=== PATIENT | male | born 1980 | race Caucasian/White ===

== ENCOUNTER 2016-11-14 09:43 | Inpatient (IN) | payer OTHER ==
[2016-11-13 22:09] VITALS: BP 149/92
[2016-11-14] VITALS (10 sets, daily range): BP systolic 131–153; BP diastolic 66–94
[~2016-11-14] VITALS: Ht 170.2 cm; Wt 108.9 kg
[2016-11-14] MEDS ORDERED: IV NORMAL SALINE 1000ML BAG 1,000 ML IV SCH ×2 (09:56→10:40)
[2016-11-14] MEDS ORDERED: ONDANSETRON PF 4 MG/2 ML VIAL. ONE ×2 (10:01→16:53)
[2016-11-14] MEDS ORDERED: HYDROMORPHONE 2 MG/ML VIAL. ONE (10:01)
[2016-11-14 10:05] LABS: BASO # 0.1 x10^3/uL (0.0-0.2); BASO % 1 % (0-3); EOS % 1 % (0-3); HEMATOCRIT 45.7 % (39.0-53.0); HEMOGLOBIN 15.3 g/dL (13.0-17.5); LYMPH % 34 % (24-48); MEAN CORPUSCULAR HEMOGLOBIN 28 pg (25-35); MEAN CORPUSCULAR HGB CONC 34 g/dL (31-37); MEAN CORPUSCULAR VOLUME 83 fL (79-100); MONO % 6 % (0-9); NEUT % 58 % (31-73); PLATELET COUNT 413 x10^3/uL (140-400); RED BLOOD COUNT 5.49 x10^6/uL (4.30-5.70); RED CELL DISTRIBUTION WIDTH 14.2 % (11.5-14.5); WHITE BLOOD COUNT 14.5 x10^3/uL (4.0-11.0)
[2016-11-14] MEDS: HYDROMORPHONE 2 MG/ML VIAL. IV/SQ PRN ×3 (10:06→11:11)
--- NOTE | 2016-11-14 10:14 | RAD ---
Left wrist radiographs History: Fall, left wrist deformity. Comparison: None. Findings: PA, lateral, and oblique views of the left wrist. There is a comminuted distal radial fracture with approximately one shaft width dorsal displacement of the major distal fragment relative to the major proximal fragment. It is uncertain if the fracture extends the radiocarpal articular surface. The distal radial fracture involves the distal radioulnar joint. There is also a nondisplaced, mildly comminuted fracture of the distal ulna. There is an atypical appearance of the lunate which has a somewhat pie piece shaped appearance on the frontal view, which can be seen with lunate or perilunate dislocation, although this is not confirmed on the lateral view. Post reduction films may be helpful, as this may be a secondary to abnormal positioning given the displaced distal radial fracture. Impression: 1. Acute, displaced, comminuted distal radial fracture-dislocation 2. Acute, nondisplaced, distal ulnar fracture. 3. Atypical appearance of the lunate as described above.
[2016-11-14 10:18] LABS: CALCIUM 9.6 mg/dL (8.5-10.1); CREATININE 1.3 mg/dL (0.7-1.3); GFR 62.5; POTASSIUM 4.5 mmol/L (3.5-5.1)
--- NOTE | 2016-11-14 10:19 | RAD ---
Left elbow radiographs History: Pain, fall. Comparison: None. Findings: 2 nonstandard views of the left elbow were obtained. Examination is consequently limited as well as limited secondary to lack of third view. There is evidence of acute fracture involving the proximal ulna. There is evidence of small osseous fragments at the trochlear notch. There is also suspected to be subluxation versus dislocation of the proximal radius and normal relative to the humerus. There is associated soft tissue swelling. Impression: Limited examination. Evidence of fracture fragments, probably arising from the proximal ulna. There is also suspicion for elbow subluxation versus dislocation.
[2016-11-14] MEDS ORDERED: ONDANSETRON PF 4 MG/2 ML VIAL. IV ONE (10:30)
--- NOTE | 2016-11-14 10:37 | PHYS DOC ---
Past Medical History Past Medical History: No Pertinent History Past Surgical History: Other Additional Past Surgical Histo: eye surgery Alcohol Use: None Drug Use: None Adult General Chief Complaint Chief Complaint: UPPER EXTREMITY PAIN HPI HPI Patient is a 36 year old male who presents with complaint of left upper extremity injury. Patient states that prior to arrival he accidentally fell off of a ladder approximately 3 feet from the ground. Patient states that he tried to catch himself with his left hand. Patient states that he is having severe pain to his left upper extremity at both his wrist and elbow. The patient denies any other injuries and denies loss of consciousness. Patient rates his pain currently is 10 out of 10. Patient was noted to have an obvious deformity to the left wrist at triage. Patient denies any significant past medical history and is not on any medications currently. Patient states that he does have feeling in all 5 digits of the left hand at this time. Review of Systems Review of Systems Constitutional: Denies fever or chills [] Eyes: Denies change in visual acuity, redness, or eye pain [] HENT: Denies nasal congestion or sore throat [] Respiratory: Denies cough or shortness of breath [] Cardiovascular: Denies chest pain or edema [] GI: Denies abdominal pain, nausea, vomiting, bloody stools or diarrhea [] : Denies dysuria or hematuria [] Musculoskeletal: Left wrist pain, left elbow pain [] Integument: Denies rash or skin lesions [] Neurologic: Denies headache, focal weakness or sensory changes [] Current Medications Current Medications Current Medications Medications (Trade) Dose Ordered Sig/Mile Start Time Stop Time Status Last Admin Dose Admin Hydromorphone HCl (Dilaudid) 2 mg STK-MED ONCE 11/14/16 10:01 11/14/16 10:02 DC Ondansetron HCl (Zofran) 4 mg STK-MED ONCE 11/14/16 10:01 11/14/16 10:02 DC Sodium Chloride (Iv Sodium Chloride 0.9% 1000ml Bag) 1,000 ml @ 1,000 mls/hr Q1H 11/14/16 09:56 11/14/16 10:55 11/14/16 10:06 1,000 MLS/HR Allergies Allergies Allergies Coded Allergies Type Severity Reaction Last Updated Verified No Known Drug Allergies 11/14/16 No Physical Exam Physical Exam Constitutional: Alert, afebrile, appears in severe discomfort. [] HENT: Normocephalic, atraumatic, bilateral external ears normal, oropharynx moist, no oral exudates, nose normal. [] Eyes: PERRLA, EOMI, conjunctiva normal, no discharge. [] Neck: Normal range of motion, no tenderness, supple, no stridor. [] Cardiovascular:Heart rate regular rhythm, no murmur [] Lungs & Thorax: Bilateral breath sounds clear to auscultation [] Abdomen: Bowel sounds normal, soft, no tenderness, no masses, no pulsatile masses. [] Skin: Warm, dry, no erythema, no rash. [] Back: No tenderness, no CVA tenderness. [] Extremities: Obvious deformity to left wrist, abrasion over distal left ulna with no open wounds, left upper extremity held flexed and internally rotated, unable to extend at elbow secondary to pain, neurovascularly intact distal to injury. [] Neurologic: Alert and oriented X 3, normal motor function, normal sensory function, no focal deficits noted. [] Current Patient Data Vital Signs Vital Signs Date Time Temp Pulse Resp B/P Pulse Ox O2 Delivery O2 Flow Rate FiO2 11/14/16 10:06 26 95 Room Air 11/14/16 09:55 98.2 76 141/76 98.2 Lab Values Laboratory Tests Test 11/14/16 09:52 White Blood Count 14.5x10^3/uL (4.0-11.0) H Red Blood Count 5.49x10^6/uL (4.30-5.70) Hemoglobin 15.3g/dL (13.0-17.5) Hematocrit 45.7% (39.0-53.0) Mean Corpuscular Volume 83fL (79-100) Mean Corpuscular Hemoglobin 28pg (25-35) Mean Corpuscular Hemoglobin Concent 34g/dL (31-37) Red Cell Distribution Width 14.2% (11.5-14.5) Platelet Count 413x10^3/uL (140-400) H Neutrophils (%) (Auto) 58% (31-73) Lymphocytes (%) (Auto) 34% (24-48) Monocytes (%) (Auto) 6% (0-9) Eosinophils (%) (Auto) 1% (0-3) Basophils (%) (Auto) 1% (0-3) Neutrophils # (Auto) 8.3x10^3uL (1.8-7.7) H Lymphocytes # (Auto) 5.0x10^3/uL (1.0-4.8) H Monocytes # (Auto) 0.9x10^3/uL (0.0-1.1) Eosinophils # (Auto) 0.1x10^3/uL (0.0-0.7) Basophils # (Auto) 0.1x10^3/uL (0.0-0.2) Sodium Level 143mmol/L (136-145) Potassium Level 4.5mmol/L (3.5-5.1) Chloride Level 104mmol/L (98-107) Carbon Dioxide Level 26mmol/L (21-32) Anion Gap 13 (6-14) Blood Urea Nitrogen 16mg/dL (8-26) Creatinine 1.3mg/dL (0.7-1.3) Estimated GFR (Cockcroft-Gault) 62.5 Glucose Level 179mg/dL (70-99) H Calcium Level 9.6mg/dL (8.5-10.1) Laboratory Tests 11/14/16 09:52 Laboratory Tests 11/14/16 09:52 EKG EKG Not performed [] Radiology/Procedures Radiology/Procedures Not performed [] Course & Med Decision Making Course & Med Decision Making Pertinent Labs and Imaging studies reviewed. (See chart for details) The patient was activated as a trauma alert. Patient was found to have injuries of both the distal left ulna as well as a left elbow dislocation. I consult to Dr. Arredondo who agreed to take patient to the operating room for reduction of the left wrist and left elbow under general anesthesia. I spoke with Dr. Liu who accepted care patient in hospital. I also spoke with Dr. Rosas who agreed to consult on patient in hospital for trauma evaluation. Dragon Disclaimer Dragon Disclaimer This electronic medical record was generated, in whole or in part, using a voice recognition dictation system. Departure Departure Impression: Primary Impression: Distal radius fracture, left Additional Impression: Dislocation of left elbow Disposition: ADMITTED INPATIENT Admitting Physician: Yasmine Liu Condition: STABLE Problem Qualifiers Primary Impression: Distal radius fracture, left Encounter type: initial encounter Fracture type: closed Fracture morphology : Colles' Qualified Code: S52.532A - Colles' fracture of left radius, initial encounter for closed fracture Additional Impression: Dislocation of left elbow Encounter type: initial encounter Qualified Code: S53.105A - Unspecified dislocation of left ulnohumeral joint, initial encounter DAVID BAUGH MD Nov 14, 2016 10:37
[2016-11-14] MEDS ORDERED: ONDANSETRON PF 4 MG/2 ML VIAL. IV PRN ×2 (10:45→19:30)
[2016-11-14] MEDS ORDERED: HYDROMORPHONE 2 MG TABLET. PO PRN ×3 (10:45→14:15)
[2016-11-14] MEDS ORDERED: ACETAMINOPHEN 325 MG TABLET. PO PRN (10:45)
--- NOTE | 2016-11-14 11:25 | ACF ---
Admit Criteria Forms Admit Criteria Forms Admit Criteria Forms MUSCULOSKELETAL DISEASE GRG Clinical Indications for Admission to Inpatient Care (Place 'X' for any and all applicable criteria): Hospital admission is needed for appropriate care of the patient because of ANY ONE of the following: [ X]I. Fracture, dislocation, or other musculoskeletal injury requiring inpatient care(medical) as indicated by ANY ONE of the following(4)(5)(6)(7) [ ]a) Vertebral fracture requiring observation for instability or neurologic compromise (8) [ ]b) Compartment syndrome (proven or cannot be ruled out during observation level of care) (9) [ ]c) Limb-threatening injury [ ]d) Major injury requiring inpatient stabilization such as traction initiation or external fixation before internal fixation or closure of complex or open fracture [ ]e) Major injury requiring inpatient treatment after emergency or observation level care (as appropriate) [ X]f) Severe pain requiring acute inpatient management [ ]II. Newly diagnosed or suspected bone, joint, or orthopedic device infection (e.g., osteomyelitis, septic arthritis) needing ANY ONE of the following(1)(2)(3) [ ]a) IV antibiotics that cannot be initiated in other than inpatient setting (e.g., patient too unstable or home infusion not available) [ ]b) Device removal or replacement [ ]c) Bone or soft tissue debridement [ ]d) Joint drainage (drain placement or repetitive aspirations) [ ]III. Severe rheumatologic disease (e.g., systemic lupus erythematosus, rheumatoid arthritis) with complications or comorbidities (Also use Optimal Recovery Care Criteria or General Recovery Criteria as appropriate on the basis of predominant condition), including ANY ONE of the following(10 )(11)(12)(13) [ ]a) Severe infection (e.g., NEWS PHOTOGRAPHER infection, sepsis) (14) [ ]b) Respiratory complications, including ANY ONE of the following: [ ]i) Pleural effusion with respiratory compromise [ ]ii) Pulmonary hypertension with congestive failure [ ]iii) Respiratory failure [ ]iv) Pulmonary hemorrhage (15) [ ]c) Hematologic disease, including ANY ONE of the following: [ ]i) Coagulopathy with bleeding [ ]ii) Thrombosis with hypercoagulable state [ ]iii) Thrombotic thrombocytopenic purpura [ ]d) Cerebritis with seizures, psychosis, or other severe abnormalities [ ]e) Vertebral destruction with monitoring needed for cervical myelopathy& possible respiratory compromise [ ]f) Exacerbation that requires inpatient treatment (e.g., intravenous immunosuppression) (16) [ ]g) Acute renal failure [ ]IV. Severe vasculitis with complications or comorbidities (Also use Optimal Recovery Care Criteria or General Recovery Criteria as appropriate on the basis of predominant condition), including ANY ONE of the following(11)(12)(17)(18)(19)(20) [ ]a) NEWS PHOTOGRAPHER vasculitis with seizures, psychosis, or other severe abnormalities (22) [ ]b) Renal failure (16) [ ]c) Pulmonary hemorrhage (15) [ ]d) Cerebral infarction [ ]e) Gastrointestinal ischemia [ ]f) Gangrene or threatened amputation [ ]g) Exacerbation that requires inpatient treatment (e.g., intravenous immunosuppression) (19)(21) [ ]V. Severe myopathy as indicated by ANY ONE of the following (28)(29) [ ]a) New onset of airway compromise or inability to swallow [ ]b) Respiratory deterioration with observation needed for impending respiratory failure [ ]c) Exacerbation that requires inpatient treatment (e.g., intravenous immunosuppression) [ ]. Severe gout (crystal arthropathy) as indicated by ANY ONE of the following (23)(24) [ ]a) Severe pain requiring acute inpatient management [ ]b) Exacerbation that requires inpatient treatment (e.g., intravenous treatment) [ ]VII.Rhabdomyolysis and ANY ONE of the following (25)(26)(27) [ ]a) Acute renal failure [ ]b) Need for intravenous hydration after emergency or observation level care (as appropriate) [ ]c) Inability to maintain oral hydration [ ]d) Change in mental status [ ]e) Electrolyte abnormality that remains after emergency or observation level care (as appropriate) [ ]VIII Post amputation complication, as indicated by ANY ONE of the following [ ]a) Infection [ ]b) Dehiscence [ ]c) Myodesis failure [ ]IX. Severe pain requiring acute inpatient management as indicated by ALL of the following (30)(31)(32) [ ]a) Continuous or frequent (e.g., every 2 to 4 hrs) parenteral analgesics required [A] [ ]b) Rapid improvement expected from treatment or acute intervention ( e.g., surgery, anesthesia procedure[B] [ ]X. Musculoskeletal Disease and ALL of the following: [ ]a) Symptom or finding for which emergency and observation care have failed or are not considered appropriate (Use General Criteria: Observation Care as appropriate) [ ]b) Presence of ANY ONE of the following [ ]i) A General Admission Criteria [ ]ii) A Pediatric General Admission Criteria The original [facility] content created by [facility] has been revised. The portions of the content which have been revised are identified through the use of italic text or in bold, and [facility] has neither reviewed nor approved the modified material. All other unmodified content is copyright [facility]. Please see references footnoted in the original [facility] edition 2016 ALBINO MARCANO Nov 14, 2016 11:25
[2016-11-14] MEDS ORDERED: HYDROMORPHONE 2 MG/ML VIAL. IV PRN ×2 (12:30→14:15)
[2016-11-14] MEDS: POTASSIUM CL 20MEQ D5-0.45NACL 1,000 ML IV SCH ×3 (12:50→23:46)
--- NOTE | 2016-11-14 13:15 | PDOC2 ---
CONSULT Date of Consult Date of Consult DATE: 11/14/16 TIME: 13:01 Reason for Consult Reason for Consult: left wrist fracture and elbow dislocation Identification/Chief Complaint Chief Complaint left wrist and elbow pain Source Source: Chart review, Patient History of Present Illness Reason for Visit: this 36-year-old right-handed man fell at work for [employer] when he was two steps up on a ladder in a garage, and fell to the ground. He landed on an outstretched hand from the increased height of two steps on the ladder. He had a hard hat on. He denies any head injury and does not believe he struck his head. He denies pain in the other extremities. No neck or back pain. Past Medical History Past Medical History he has mild GERD symptoms treated with [id number] heartburn medications. He has mild hypertension, treated without medication. GI: GERD Past Surgical History Past Surgical History orbital fracture when he was 13 years old treated surgically Family History Family History denies any significant anesthesia problems, except his mom is "slow to wake up" Family History: Cancer, Coronary Artery Disease Social History Social History he is and right-handed. He used tobacco remotely but quit smoking a half pack per day slightly more than five years ago. Occasionally uses alcohol. Denies smokeless tobacco. Denies street drugs. Quit ALCOHOL: occassional Drugs: None Lives: with Family Current Problem List Problem List Problems Medical Problems: (1) Dislocation of left elbow Status: Acute (2) Distal radius fracture, left Status: Acute Current Medications Current Medications Current Medications Sodium Chloride (Iv Sodium Chloride 0.9% 1000ml Bag) 1,000 ml @ 1,000 mls/hr Q1H IV Last administered on 11/14/16 10:06; Start 11/14/16 at 09:56; Stop at 10:55; Status DC Ondansetron HCl (Zofran) 4 mg 1X ONCE IV Last administered on 11/14/16 10:06; Start 11/14/16 at 10:30; Stop 11/14/16 at 10:31; Status DC Hydromorphone HCl (Dilaudid) 1 mg PRN Q15MIN PRN IV/SQ PAIN GREATER THAN 3/10 Last administered on 11/14/16 11:11; Start 11/14/16 at 10:30; Stop 11/14/16 at 12: 34; Status DC Ondansetron HCl (Zofran) 4 mg STK-MED ONCE .ROUTE ; Start 11/14/16 at 10:01; Stop 11/14/16 at 10:02; Status DC Hydromorphone HCl (Dilaudid) 2 mg STK-MED ONCE .ROUTE ; Start 11/14/16 at 10:01; Stop 11/14/16 at 10:02; Status DC Ondansetron HCl 4 mg 4 mg PRN Q8HRS PRN IV NAUSEA/VOMITING; Start 11/14/16 at 10 :45; Stop 11/15/16 at 10:44 Sodium Chloride (Iv Sodium Chloride 0.9% 1000ml Bag) 1,000 ml @ 100 mls/hr Q10H IV ; Start 11/14/16 at 10:40; Stop 11/14/16 at 12:55; Status DC Acetaminophen (Tylenol) 650 mg PRN Q4HRS PRN PO FEVER; Start 11/14/16 at 10:45; Stop 11/15/16 at 10:44 Hydromorphone HCl (Dilaudid) 1 mg PRN Q2HR PRN PO PAIN; Start 11/14/16 at 10:45 Hydromorphone HCl 1 mg 1 mg PRN Q2HR PRN IV PAIN Last administered on 11/14/16 12:30; Start 11/14/16 at 12:30 Potassium Chloride/Dextrose/ Sod Cl (KCl 20 Meq In D5W-1/2 NS) 1,000 ml @ 125 mls/hr Q8H IV Last administered on 11/14/16 12:50; Start 11/14/16 at 13:00 Allergies Allergies: Coded Allergies: No Known Drug Allergies (Unverified , 11/14/16) ROS Review of System he denied headaches, fatigue, fevers, unexplained weight loss,bowel problems, bladder problems, chest pain or shortness of breath. He denies any metal or nickel sensitivity/allergy General: No: Fatigue HEENT: No: Heacaches Respiratory: No: Shortness of breath Cardiovascular: No Chest Pain Gastrointestinal: No Diarrhea Genitourinary: No Dysuria Neurological: No Headaches Physical Exam General: Alert, Oriented X3, Cooperative, No acute distress HEENT: Atraumatic, Other (Mild Postsurgical changes right orbit) Lungs: Normal air movement Heart: Regular rate Abdomen: Soft Extremities: Other (Left upper extremity is in a splint. Tender at the elbow and the wrist. Skin is reported as intact. He has intact sensation of the digits, but poor motor function. He had a flicker of motion for flexion and extension. I did not see any abduction or adduction, However, the splint may be limiting this. Capillary refill of the fingertips seems normal. I checked the right shoulder and upper extremity, and bilateral lower extremities. They were normal for range of motion,alignment, sensation, capillary refilland motor function.) Skin: No significant lesion Neuro: Normal speech Psych/Mental Status: Mood NL Vitals VITALS Vital Signs Date Time Temp Pulse Resp B/P Pulse Ox O2 Delivery O2 Flow Rate FiO2 11/14/16 12:30 16 Nasal Cannula 2.0 11/14/16 11:12 80 173/91 98 11/14/16 09:55 98.2 98.2 Labs Labs Laboratory Tests Test 11/14/16 09:52 White Blood Count 14.5x10^3/uL (4.0-11.0) Red Blood Count 5.49x10^6/uL (4.30-5.70) Hemoglobin 15.3g/dL (13.0-17.5) Hematocrit 45.7% (39.0-53.0) Mean Corpuscular Volume 83fL (79-100) Mean Corpuscular Hemoglobin 28pg (25-35) Mean Corpuscular Hemoglobin Concent 34g/dL (31-37) Red Cell Distribution Width 14.2% (11.5-14.5) Platelet Count 413x10^3/uL (140-400) Neutrophils (%) (Auto) 58% (31-73) Lymphocytes (%) (Auto) 34% (24-48) Monocytes (%) (Auto) 6% (0-9) Eosinophils (%) (Auto) 1% (0-3) Basophils (%) (Auto) 1% (0-3) Neutrophils # (Auto) 8.3x10^3uL (1.8-7.7) Lymphocytes # (Auto) 5.0x10^3/uL (1.0-4.8) Monocytes # (Auto) 0.9x10^3/uL (0.0-1.1) Eosinophils # (Auto) 0.1x10^3/uL (0.0-0.7) Basophils # (Auto) 0.1x10^3/uL (0.0-0.2) Sodium Level 143mmol/L (136-145) Potassium Level 4.5mmol/L (3.5-5.1) Chloride Level 104mmol/L (98-107) Carbon Dioxide Level 26mmol/L (21-32) Anion Gap 13 (6-14) Blood Urea Nitrogen 16mg/dL (8-26) Creatinine 1.3mg/dL (0.7-1.3) Estimated GFR (Cockcroft-Gault) 62.5 Glucose Level 179mg/dL (70-99) Calcium Level 9.6mg/dL (8.5-10.1) Laboratory Tests Test 11/14/16 09:52 White Blood Count 14.5x10^3/uL (4.0-11.0) Red Blood Count 5.49x10^6/uL (4.30-5.70) Hemoglobin 15.3g/dL (13.0-17.5) Hematocrit 45.7% (39.0-53.0) Mean Corpuscular Volume 83fL (79-100) Mean Corpuscular Hemoglobin 28pg (25-35) Mean Corpuscular Hemoglobin Concent 34g/dL (31-37) Red Cell Distribution Width 14.2% (11.5-14.5) Platelet Count 413x10^3/uL (140-400) Neutrophils (%) (Auto) 58% (31-73) Lymphocytes (%) (Auto) 34% (24-48) Monocytes (%) (Auto) 6% (0-9) Eosinophils (%) (Auto) 1% (0-3) Basophils (%) (Auto) 1% (0-3) Neutrophils # (Auto) 8.3x10^3uL (1.8-7.7) Lymphocytes # (Auto) 5.0x10^3/uL (1.0-4.8) Monocytes # (Auto) 0.9x10^3/uL (0.0-1.1) Eosinophils # (Auto) 0.1x10^3/uL (0.0-0.7) Basophils # (Auto) 0.1x10^3/uL (0.0-0.2) Sodium Level 143mmol/L (136-145) Potassium Level 4.5mmol/L (3.5-5.1) Chloride Level 104mmol/L (98-107) Carbon Dioxide Level 26mmol/L (21-32) Anion Gap 13 (6-14) Blood Urea Nitrogen 16mg/dL (8-26) Creatinine 1.3mg/dL (0.7-1.3) Estimated GFR (Cockcroft-Gault) 62.5 Glucose Level 179mg/dL (70-99) Calcium Level 9.6mg/dL (8.5-10.1) Images Images X her reports of the left wrist and elbow reviewed. x-ray images of the wrist and elbow independently reviewed by me. Comminuted and displaced distal radius fracture with associated distal ulnar fracture, which appears minimally displaced. The radius fracture has 100% overlap and shortening. the fracture appears primarily extra-articular.the ulnar styloid fracture may have some articular involvement at the TFCC. he elbow appears to have an anterior dislocation, although limited views here make a final diagnoses difficult. There are also some associated avulsion-type fracture fragments probably from the ulna. Assessment/Plan Assessment/Plan closed left elbow dislocation. Closed displaced distal radius fracture with ulnar fracture. Mild neurologic compromise, probably just from displaced fractures. I recommended treatment in the operating room for closed reduction of the elbow , and open reduction with internal fixation of the wrist. I discussed the plate and screw fixation. I discussed the potential risks of stiffness in the elbow, infection of the wrist surgery, nerve injury, and persistent numbness or weakness, risks of prolonged healing greater than three months, need for hardware removal, or other potential surgical or anesthetic complications. All of their questions about surgery were answered and they desire to proceed. He had eaten recently, and was recommended to delay surgery for a few hours to prevent aspiration. We will proceed with surgery today, and keep him n.p.o. I will start some IV fluids. LILIAM MEZA MD Nov 14, 2016 13:14
[2016-11-14] MEDS ORDERED: DEXTROSE 50% 25 GM / 50ML DISP.SYRIN. IV PRN ×2 (13:45→19:30)
[2016-11-14] MEDS: MORPHINE SULFATE 10 MG/ML VIAL. IV PRN (13:48)
[2016-11-14] MEDS ORDERED: CEFAZOLIN 2GM PREMIX 50 ML IV ONE (14:00)
[2016-11-14] MEDS ORDERED: KETOROLAC TROMETHAMINE 30 MG/ML INJ. IV ONE (14:00)
--- NOTE | 2016-11-14 14:29 | PDOC2 ---
CONSULT Date of Consult Date of Consult DATE: 11/14/16 TIME: 14:23 History of Present Illness Reason for Visit: The patient is a 36 year old male who was brought by private vehicle to the ER after a fall. He was in a garage at work 2-3 feet high on a ladder when he fell to the ground. He fell on an outstretched left arm and noticed immediate pain. He states his head hit, but he had a hard hat for protection. He denies any loss of consciousness. He denies pain any other location other than the left arm. He has been ambulating without difficulty since his admission. The patient has been seen by Ortho with a planned trip to the OR later today. Past Medical History Past Medical History obesity GI: GERD Past Surgical History Past Surgical History eye socket procedure Family History Family History: Cancer, Coronary Artery Disease Social History Quit ALCOHOL: occassional Drugs: None Lives: with Family Current Problem List Problem List Problems Medical Problems: (1) Dislocation of left elbow Status: Acute (2) Distal radius fracture, left Status: Acute Current Medications Current Medications Current Medications Sodium Chloride (Iv Sodium Chloride 0.9% 1000ml Bag) 1,000 ml @ 1,000 mls/hr Q1H IV Last administered on 11/14/16 10:06; Start 11/14/16 at 09:56; Stop at 10:55; Status DC Ondansetron HCl (Zofran) 4 mg 1X ONCE IV Last administered on 11/14/16 10:06; Start 11/14/16 at 10:30; Stop 11/14/16 at 10:31; Status DC Hydromorphone HCl (Dilaudid) 1 mg PRN Q15MIN PRN IV/SQ PAIN GREATER THAN 3/10 Last administered on 11/14/16 11:11; Start 11/14/16 at 10:30; Stop 11/14/16 at 12: 34; Status DC Ondansetron HCl (Zofran) 4 mg STK-MED ONCE .ROUTE ; Start 11/14/16 at 10:01; Stop 11/14/16 at 10:02; Status DC Hydromorphone HCl (Dilaudid) 2 mg STK-MED ONCE .ROUTE ; Start 11/14/16 at 10:01; Stop 11/14/16 at 10:02; Status DC Ondansetron HCl 4 mg 4 mg PRN Q8HRS PRN IV NAUSEA/VOMITING; Start 11/14/16 at 10 :45; Stop 11/15/16 at 10:44 Sodium Chloride (Iv Sodium Chloride 0.9% 1000ml Bag) 1,000 ml @ 100 mls/hr Q10H IV ; Start 11/14/16 at 10:40; Stop 11/14/16 at 12:55; Status DC Acetaminophen (Tylenol) 650 mg PRN Q4HRS PRN PO FEVER; Start 11/14/16 at 10:45; Stop 11/15/16 at 10:44 Hydromorphone HCl (Dilaudid) 1 mg PRN Q2HR PRN PO PAIN; Start 11/14/16 at 10:45 ; Stop 11/14/16 at 14:08; Status DC Hydromorphone HCl 1 mg 1 mg PRN Q2HR PRN IV PAIN Last administered on 11/14/16 12:30; Start 11/14/16 at 12:30; Stop 11/14/16 at 14:13; Status DC Potassium Chloride/Dextrose/ Sod Cl 1,000 ml @ 125 mls/hr Q8H IV Last administered on 11/14/16 12:50; Start 11/14/16 at 13:00 Cefazolin Sodium/ Dextrose (Ancef 2gm Premix) 50 ml @ 100 mls/hr 1X ONCE IV ; Start 11/14/16 at 14:00; Stop 11/14/16 at 14:29 Morphine Sulfate 10 mg PRN Q2HR PRN IV PAIN Last administered on 11/14/16 13:48 ; Start 11/14/16 at 13:45 Insulin Aspart (Novolog) 0-7 UNITS TIDWMEALS SQ ; Start 11/14/16 at 17:00 Dextrose (Dextrose 50%-Water Syringe) 12.5 gm PRN Q15MIN PRN IV SEE COMMENTS; Start 11/14/16 at 13:45 Ketorolac Tromethamine (Toradol) 30 mg 1X ONCE IV Last administered on 13:48; Start 11/14/16 at 14:00; Stop 11/14/16 at 14:01; Status DC Hydromorphone HCl (Dilaudid) 1.6 mg PRN Q2HR PRN PO PAIN; Start 11/14/16 at 14: 15; Stop 11/14/16 at 14:15; Status DC Hydromorphone HCl (Dilaudid) 2 mg PRN Q2HR PRN PO PAIN; Start 11/14/16 at 14:15 Hydromorphone HCl (Dilaudid) 1.6 mg PRN Q2HR PRN IV PAIN; Start 11/14/16 at 14: 15 Diphenhydramine HCl (Benadryl) 25 mg 1X ONCE IVP ; Start 11/14/16 at 14:30; Stop 11/14/16 at 14:31 Allergies Allergies: Coded Allergies: No Known Drug Allergies (Unverified , 11/14/16) ROS General: No: Appetite, Chills, Fatigue, Malaise, Night Sweats, Other PSYCHOLOGICAL ROS: No: Anxiety, Behavioral Disorder, Concentration difficultie , Decreased libido, Depression, Disorientation, Hallucinations, Hostility, Irritablity, Memory difficulties, Mood Swings, Obsessive thoughts, Other, Physical abuse, Sexual abuse, Sleep disturbances, Suicidal ideation Eyes: No Blurry vision, No Decreased vision, No Double vision, No Dry eyes, No Excessive tearing, No Eye Pain, No Itchy Eyes, No Loss of vision, No Other, No Photophobia, No Scotomata, No Uses contacts, No Uses glasses HEENT: No: Epistaxis, Heacaches, Hearing change, Nasal congestion, Nasal discharge, Oral lesions, Other, Sinus pain, Sneezing, Snoring, Sore Throat, Tinnitus, Vertigo, Visual Changes, Vocal changes ALLERGY AND IMMUNOLOGY: No: Hives, Insect Bite Sensitivity, Itchy/Watery Eyes, Nasal Congestion, Other, Post Nasal Drip, Seasonal Allergies Hematological and Lymphatic: No: Bleeding Problems, Blood Clots, Blood Transfusions, Brusing, Night Sweats, Other, Pallor, Swollen Lymph Nodes Breast: No New/Changing Breast Lumps, No Nipple changes, No Nipple discharge, No Other Respiratory: No: Cough, Hemoptysis, Orthopnea, Other, Pleuritic Pain, SOB with excertion, Shortness of breath, Sputum Changes, Stridor, Tachypnea, Wheezing Cardiovascular: No Chest Pain, No Edema, No Lt Headedness, No Orthopnea, No Other, No Palpitations, No Paroxysmal Noc. Dyspnea Gastrointestinal: No Abdominal Pain, No Constipation, No Diarrhea, No Hematochezia, No Melena, No Nausea, No Other, No Vomiting Genitourinary: No , No , No , No , No , No , No , No Discharge, No Dysuria, No Flank Pain, No Frequency, No Hematuria, No Incontinence, No Other, No Pain, No Retention, No Urgency Musculoskeletal: Yes Other (neg other than details in HPI) Neurological: No Behavorial Changes, No Bowel/Bladder ControlChng, No Confusion , No Dizziness, No Gait Disturbance, No Headaches, No Impaired Coord/balance, No Memory Loss, No Numbness/Tingling, No Other, No Seizures, No Speech Problems , No Tremors, No Visual Changes, No Weakness Skin: No Acne, No Dry Skin, No Eczema, No Hair Changes, No Lumps, No Mole Changes, No Mottling, No Nail Changes, No Other, No Pruritus, No Rash, No Skin Lesion Changes Physical Exam Physical Exam no back or spinal tenderness General: Alert, Oriented X3, Cooperative, No acute distress HEENT: Atraumatic, PERRLA Lungs: Clear to auscultation Heart: Regular rate, Normal S1, Normal S2 Abdomen: Normal bowel sounds, Soft (obese), No tenderness, No masses Extremities: No clubbing, No cyanosis, No edema, Other (left upper extremity sling present) Skin: No rashes, No breakdown Neuro: Normal gait, Normal speech, Strength at 5/5 X4 ext, Normal tone Psych/Mental Status: Mental status NL MUSCULOSKELETAL: No deformity Vitals VITALS Vital Signs Date Time Temp Pulse Resp B/P Pulse Ox O2 Delivery O2 Flow Rate FiO2 11/14/16 14:21 16 Nasal Cannula 2.0 11/14/16 11:50 99.1 83 140/88 97 99.1 Labs Labs Laboratory Tests Test 11/14/16 09:52 White Blood Count 14.5x10^3/uL (4.0-11.0) Red Blood Count 5.49x10^6/uL (4.30-5.70) Hemoglobin 15.3g/dL (13.0-17.5) Hematocrit 45.7% (39.0-53.0) Mean Corpuscular Volume 83fL (79-100) Mean Corpuscular Hemoglobin 28pg (25-35) Mean Corpuscular Hemoglobin Concent 34g/dL (31-37) Red Cell Distribution Width 14.2% (11.5-14.5) Platelet Count 413x10^3/uL (140-400) Neutrophils (%) (Auto) 58% (31-73) Lymphocytes (%) (Auto) 34% (24-48) Monocytes (%) (Auto) 6% (0-9) Eosinophils (%) (Auto) 1% (0-3) Basophils (%) (Auto) 1% (0-3) Neutrophils # (Auto) 8.3x10^3uL (1.8-7.7) Lymphocytes # (Auto) 5.0x10^3/uL (1.0-4.8) Monocytes # (Auto) 0.9x10^3/uL (0.0-1.1) Eosinophils # (Auto) 0.1x10^3/uL (0.0-0.7) Basophils # (Auto) 0.1x10^3/uL (0.0-0.2) Sodium Level 143mmol/L (136-145) Potassium Level 4.5mmol/L (3.5-5.1) Chloride Level 104mmol/L (98-107) Carbon Dioxide Level 26mmol/L (21-32) Anion Gap 13 (6-14) Blood Urea Nitrogen 16mg/dL (8-26) Creatinine 1.3mg/dL (0.7-1.3) Estimated GFR (Cockcroft-Gault) 62.5 Glucose Level 179mg/dL (70-99) Calcium Level 9.6mg/dL (8.5-10.1) Laboratory Tests Test 11/14/16 09:52 White Blood Count 14.5x10^3/uL (4.0-11.0) Red Blood Count 5.49x10^6/uL (4.30-5.70) Hemoglobin 15.3g/dL (13.0-17.5) Hematocrit 45.7% (39.0-53.0) Mean Corpuscular Volume 83fL (79-100) Mean Corpuscular Hemoglobin 28pg (25-35) Mean Corpuscular Hemoglobin Concent 34g/dL (31-37) Red Cell Distribution Width 14.2% (11.5-14.5) Platelet Count 413x10^3/uL (140-400) Neutrophils (%) (Auto) 58% (31-73) Lymphocytes (%) (Auto) 34% (24-48) Monocytes (%) (Auto) 6% (0-9) Eosinophils (%) (Auto) 1% (0-3) Basophils (%) (Auto) 1% (0-3) Neutrophils # (Auto) 8.3x10^3uL (1.8-7.7) Lymphocytes # (Auto) 5.0x10^3/uL (1.0-4.8) Monocytes # (Auto) 0.9x10^3/uL (0.0-1.1) Eosinophils # (Auto) 0.1x10^3/uL (0.0-0.7) Basophils # (Auto) 0.1x10^3/uL (0.0-0.2) Sodium Level 143mmol/L (136-145) Potassium Level 4.5mmol/L (3.5-5.1) Chloride Level 104mmol/L (98-107) Carbon Dioxide Level 26mmol/L (21-32) Anion Gap 13 (6-14) Blood Urea Nitrogen 16mg/dL (8-26) Creatinine 1.3mg/dL (0.7-1.3) Estimated GFR (Cockcroft-Gault) 62.5 Glucose Level 179mg/dL (70-99) Calcium Level 9.6mg/dL (8.5-10.1) Images Images L wrist Impression: 1. Acute, displaced, comminuted distal radial fracture-dislocation 2. Acute, nondisplaced, distal ulnar fracture. 3. Atypical appearance of the lunate as described above. Assessment/Plan Assessment/Plan 36 year old male, fall from low height onto left arm, wrist fracture with dislocation. No other site of injury based on presentation and examination. Plan to OR later today per Ortho. No other specific trauma recommendations; we will sign off. JADE DOAN MD Nov 14, 2016 14:29
[2016-11-14] MEDS ORDERED: DIPHENHYDRAMINE 50 MG/ML VIAL. IVP ONE (14:30)
[2016-11-14] MEDS ORDERED: POLYETHYLENE GLYCOL 3350 17 GM PACKET. PO PRN ×2 (15:00→19:30)
--- NOTE | 2016-11-14 15:01 | PDOC1 ---
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 10/10 pain, unrelenting. Pain 10 after IV dilaudid. no prior fracture, no med history, Past Medical History Cardiovascular: No pertinent hx Pulmonary: Asthma GI: GERD Hepatobiliary: No pertinent hx Psych: No pertinent hx Past Surgical History Past Surgical History: No pertinent history Family History Family History: Cancer, Coronary Artery Disease Social History Smoke: No ALCOHOL: occassional Drugs: None Current Problem List Problem List Problems Medical Problems: (1) Dislocation of left elbow Status: Acute (2) Distal radius fracture, left Status: Acute Problems: Current Medications Current Medications Current Medications Sodium Chloride (Iv Sodium Chloride 0.9% 1000ml Bag) 1,000 ml @ 1,000 mls/hr Q1H IV Last administered on 11/14/16 10:06; Start 11/14/16 at 09:56; Stop at 10:55; Status DC Ondansetron HCl (Zofran) 4 mg 1X ONCE IV Last administered on 11/14/16 10:06; Start 11/14/16 at 10:30; Stop 11/14/16 at 10:31; Status DC Hydromorphone HCl (Dilaudid) 1 mg PRN Q15MIN PRN IV/SQ PAIN GREATER THAN 3/10 Last administered on 11/14/16 11:11; Start 11/14/16 at 10:30; Stop 11/14/16 at 12: 34; Status DC Ondansetron HCl (Zofran) 4 mg STK-MED ONCE .ROUTE ; Start 11/14/16 at 10:01; Stop 11/14/16 at 10:02; Status DC Hydromorphone HCl (Dilaudid) 2 mg STK-MED ONCE .ROUTE ; Start 11/14/16 at 10:01; Stop 11/14/16 at 10:02; Status DC Ondansetron HCl 4 mg 4 mg PRN Q8HRS PRN IV NAUSEA/VOMITING; Start 11/14/16 at 10 :45; Stop 11/15/16 at 10:44 Sodium Chloride (Iv Sodium Chloride 0.9% 1000ml Bag) 1,000 ml @ 100 mls/hr Q10H IV ; Start 11/14/16 at 10:40; Stop 11/14/16 at 12:55; Status DC Acetaminophen (Tylenol) 650 mg PRN Q4HRS PRN PO FEVER; Start 11/14/16 at 10:45; Stop 11/15/16 at 10:44 Hydromorphone HCl (Dilaudid) 1 mg PRN Q2HR PRN PO PAIN; Start 11/14/16 at 10:45 ; Stop 11/14/16 at 14:08; Status DC Hydromorphone HCl 1 mg 1 mg PRN Q2HR PRN IV PAIN Last administered on 11/14/16 12:30; Start 11/14/16 at 12:30; Stop 11/14/16 at 14:13; Status DC Potassium Chloride/Dextrose/ Sod Cl 1,000 ml @ 125 mls/hr Q8H IV Last administered on 11/14/16 12:50; Start 11/14/16 at 13:00 Cefazolin Sodium/ Dextrose (Ancef 2gm Premix) 50 ml @ 100 mls/hr 1X ONCE IV ; Start 11/14/16 at 14:00; Stop 11/14/16 at 14:29; Status DC Morphine Sulfate 10 mg PRN Q2HR PRN IV PAIN Last administered on 11/14/16 13:48 ; Start 11/14/16 at 13:45 Insulin Aspart (Novolog) 0-7 UNITS TIDWMEALS SQ ; Start 11/14/16 at 17:00 Dextrose (Dextrose 50%-Water Syringe) 12.5 gm PRN Q15MIN PRN IV SEE COMMENTS; Start 11/14/16 at 13:45 Ketorolac Tromethamine (Toradol) 30 mg 1X ONCE IV Last administered on 13:48; Start 11/14/16 at 14:00; Stop 11/14/16 at 14:01; Status DC Hydromorphone HCl (Dilaudid) 1.6 mg PRN Q2HR PRN PO PAIN; Start 11/14/16 at 14: 15; Stop 11/14/16 at 14:15; Status DC Hydromorphone HCl (Dilaudid) 2 mg PRN Q2HR PRN PO PAIN; Start 11/14/16 at 14:15 Hydromorphone HCl (Dilaudid) 1.6 mg PRN Q2HR PRN IV PAIN; Start 11/14/16 at 14: 15 Diphenhydramine HCl (Benadryl) 25 mg 1X ONCE IVP ; Start 11/14/16 at 14:30; Stop 11/14/16 at 14:31; Status DC Allergies Allergies: Coded Allergies: No Known Drug Allergies (Unverified , 11/14/16) ROS General: No: Appetite, Chills, Fatigue, Malaise, Night Sweats, Other PSYCHOLOGICAL ROS: No: Anxiety, Behavioral Disorder, Concentration difficultie , Decreased libido, Depression, Disorientation, Hallucinations, Hostility, Irritablity, Memory difficulties, Mood Swings, Obsessive thoughts, Other, Physical abuse, Sexual abuse, Sleep disturbances, Suicidal ideation Eyes: No Blurry vision, No Decreased vision, No Double vision, No Dry eyes, No Excessive tearing, No Eye Pain, No Itchy Eyes, No Loss of vision, No Other, No Photophobia, No Scotomata, No Uses contacts, No Uses glasses HEENT: No: Epistaxis, Heacaches, Hearing change, Nasal congestion, Nasal discharge, Oral lesions, Other, Sinus pain, Sneezing, Snoring, Sore Throat, Tinnitus, Vertigo, Visual Changes, Vocal changes Hematological and Lymphatic: No: Bleeding Problems, Blood Clots, Blood Transfusions, Brusing, Night Sweats, Other, Pallor, Swollen Lymph Nodes Respiratory: No: Cough, Hemoptysis, Orthopnea, Other, Pleuritic Pain, SOB with excertion, Shortness of breath, Sputum Changes, Stridor, Tachypnea, Wheezing Cardiovascular: No Chest Pain, No Edema, No Lt Headedness, No Orthopnea, No Other, No Palpitations, No Paroxysmal Noc. Dyspnea Gastrointestinal: No Abdominal Pain, No Constipation, No Diarrhea, No Hematochezia, No Melena, No Nausea, No Other, No Vomiting Genitourinary: No , No , No , No , No , No , No , No Discharge, No Dysuria, No Flank Pain, No Frequency, No Hematuria, No Incontinence, No Other, No Pain, No Retention, No Urgency Musculoskeletal: Yes Joint Pain, Yes Joint Stiffness, Yes Muscular Weakness, Yes Pain In:, Yes Swelling In: Neurological: No Behavorial Changes, No Bowel/Bladder ControlChng, No Confusion , No Dizziness, No Gait Disturbance, No Headaches, No Impaired Coord/balance, No Memory Loss, No Numbness/Tingling, No Other, No Seizures, No Speech Problems , No Tremors, No Visual Changes, No Weakness Skin: No Acne, No Dry Skin, No Eczema, No Hair Changes, No Lumps, No Mole Changes, No Mottling, No Nail Changes, No Other, No Pruritus, No Rash, No Skin Lesion Changes Physical Exam General: Alert, Cooperative, moderate distress, Other (diaphoretic) HEENT: Atraumatic, EOMI, Mucous membr. moist/pink Lungs: Normal air movement Heart: S1S2, no murmurs Abdomen: Normal bowel sounds, Soft Rectal Exam: not examined Extremities: No edema, Other Skin: No rashes, No significant lesion Neuro: Normal gait, Normal speech Vitals Vitals Vital Signs Date Time Temp Pulse Resp B/P Pulse Ox O2 Delivery O2 Flow Rate FiO2 11/14/16 14:21 16 Nasal Cannula 2.0 11/14/16 11:50 99.1 83 140/88 97 99.1 Labs Labs Laboratory Tests Test 11/14/16 09:52 White Blood Count 14.5x10^3/uL (4.0-11.0) Red Blood Count 5.49x10^6/uL (4.30-5.70) Hemoglobin 15.3g/dL (13.0-17.5) Hematocrit 45.7% (39.0-53.0) Mean Corpuscular Volume 83fL (79-100) Mean Corpuscular Hemoglobin 28pg (25-35) Mean Corpuscular Hemoglobin Concent 34g/dL (31-37) Red Cell Distribution Width 14.2% (11.5-14.5) Platelet Count 413x10^3/uL (140-400) Neutrophils (%) (Auto) 58% (31-73) Lymphocytes (%) (Auto) 34% (24-48) Monocytes (%) (Auto) 6% (0-9) Eosinophils (%) (Auto) 1% (0-3) Basophils (%) (Auto) 1% (0-3) Neutrophils # (Auto) 8.3x10^3uL (1.8-7.7) Lymphocytes # (Auto) 5.0x10^3/uL (1.0-4.8) Monocytes # (Auto) 0.9x10^3/uL (0.0-1.1) Eosinophils # (Auto) 0.1x10^3/uL (0.0-0.7) Basophils # (Auto) 0.1x10^3/uL (0.0-0.2) Sodium Level 143mmol/L (136-145) Potassium Level 4.5mmol/L (3.5-5.1) Chloride Level 104mmol/L (98-107) Carbon Dioxide Level 26mmol/L (21-32) Anion Gap 13 (6-14) Blood Urea Nitrogen 16mg/dL (8-26) Creatinine 1.3mg/dL (0.7-1.3) Estimated GFR (Cockcroft-Gault) 62.5 Glucose Level 179mg/dL (70-99) Calcium Level 9.6mg/dL (8.5-10.1) Laboratory Tests Test 11/14/16 09:52 White Blood Count 14.5x10^3/uL (4.0-11.0) Red Blood Count 5.49x10^6/uL (4.30-5.70) Hemoglobin 15.3g/dL (13.0-17.5) Hematocrit 45.7% (39.0-53.0) Mean Corpuscular Volume 83fL (79-100) Mean Corpuscular Hemoglobin 28pg (25-35) Mean Corpuscular Hemoglobin Concent 34g/dL (31-37) Red Cell Distribution Width 14.2% (11.5-14.5) Platelet Count 413x10^3/uL (140-400) Neutrophils (%) (Auto) 58% (31-73) Lymphocytes (%) (Auto) 34% (24-48) Monocytes (%) (Auto) 6% (0-9) Eosinophils (%) (Auto) 1% (0-3) Basophils (%) (Auto) 1% (0-3) Neutrophils # (Auto) 8.3x10^3uL (1.8-7.7) Lymphocytes # (Auto) 5.0x10^3/uL (1.0-4.8) Monocytes # (Auto) 0.9x10^3/uL (0.0-1.1) Eosinophils # (Auto) 0.1x10^3/uL (0.0-0.7) Basophils # (Auto) 0.1x10^3/uL (0.0-0.2) Sodium Level 143mmol/L (136-145) Potassium Level 4.5mmol/L (3.5-5.1) Chloride Level 104mmol/L (98-107) Carbon Dioxide Level 26mmol/L (21-32) Anion Gap 13 (6-14) Blood Urea Nitrogen 16mg/dL (8-26) Creatinine 1.3mg/dL (0.7-1.3) Estimated GFR (Cockcroft-Gault) 62.5 Glucose Level 179mg/dL (70-99) Calcium Level 9.6mg/dL (8.5-10.1) VTE Prophylaxis Ordered VTE Prophylaxis Devices: No VTE Pharmacological Prophylaxi: No Assessment/Plan Assessment/Plan Trauma admit, s.p fall left elbow dislocation, closed left wrist fracture, traumatic and displaced distal radius fracture with ulnar fracture Leukocytosis, SIRS, not infectious, inflammation from fracture obesity, BMI 37 elevated blood sugar, not diabetes, plan SSI, and aggresive pain control, toradol X1 only, CKD 2 LAVONNE PETIT MD Nov 14, 2016 15:01
[2016-11-14] MEDS: INSULIN ASPART 300 UNITS/3 ML INSULN.PEN SQ SCH (16:03)
[2016-11-14] MEDS ORDERED: BUPIVACAINE-EPI 0.25%-1:200000 MPF 30 ML VIAL. ONE (16:32)
[2016-11-14] MEDS ORDERED: IV RINGERS,LACTATED 1000ML 1,000 ML IV SCH (16:45)
[2016-11-14] MEDS ORDERED: LIDOCAINE 2% 100 MG/5 ML SYRINGE. ONE (16:51)
[2016-11-14] MEDS ORDERED: PROPOFOL 20 ML IV ONE (16:52)
[2016-11-14] MEDS ORDERED: DEXAMETHASONE SOD PHOS 20 MG/5 ML VIAL. ONE ×2 (16:52)
[2016-11-14] MEDS ORDERED: FENTANYL PF 250 MCG/5 ML VIAL. ONE (16:54)
[2016-11-14] MEDS ORDERED: MIDAZOLAM HCL/PF 2 MG/2 ML VIAL. ONE (16:54)
[2016-11-14] MEDS ORDERED: BUPIVACAINE-EPI 0.25%-1:200000 MPF 30 ML VIAL. INJ ONE (17:23)
[2016-11-14] MEDS ORDERED: KETOROLAC 60 MG/2 ML INJ FOR OR. ONE (18:50)
[2016-11-14] MEDS ORDERED: FENTANYL PF 100 MCG/2 ML VIAL. ONE (19:15)
[2016-11-14] MEDS ORDERED: DESFLURANE > 120 MINUTES IH ONE (19:16)
[2016-11-14] MEDS ORDERED: MORPHINE SULFATE 2 MG/ML DISP.SYRIN. IV PRN (19:30)
[2016-11-14] MEDS ORDERED: HYDROCODONE/APAP 7.5/325MG TABLET. PO PRN (19:30)
[2016-11-14] MEDS ORDERED: OXYCODONE IR 5 MG TABLET. PO PRN (19:30)
[2016-11-14] MEDS ORDERED: MORPHINE SULFATE 4 MG/ML DISP.SYRIN. IV PRN (19:30)
[2016-11-14] MEDS ORDERED: FENTANYL PF 100 MCG/2 ML VIAL. IV PRN (19:30)
--- NOTE | 2016-11-14 19:36 | PDOC ---
BRIEF OPERATIVE NOTE Date: Nov 14, 2016 Pre-Op Diagnosis closed Colles fx closed elbow dislocation Post-Op Diagnosis open left distal radius and ulna fx closed elbow dislocation Procedure Performed orif distal radius debridement open fx including bone closed reduction left elbow dislocation Surgeon melvi Maintenance Planner kacey Anesthesiologist Renay Anesthesia Type: General Blood Loss 25 mL Specimens Obtained none Findings as above Complications none Additional Remarks dictation [id number] tourniquet 50 minutes LILIAM MEZA MD Nov 14, 2016 19:36
[2016-11-14] MEDS ORDERED: CEFAZOLIN 2GM PREMIX 50 ML IV SCH (19:45)
[2016-11-14] MEDS: FAMOTIDINE 20 MG TABLET. PO SCH (21:00)
[2016-11-14] MEDS: DOCUSATE SODIUM 100 MG CAPSULE. PO SCH (21:05)
[2016-11-14] MEDS: ASCORBIC ACID 500 MG TABLET PO SCH (21:05)
[2016-11-14] MEDS: CEFAZOLIN 2GM PREMIX 50 ML IV SCH (23:41)
[2016-11-14] MEDS: KETOROLAC TROMETHAMINE 30 MG/ML INJ. IV SCH (23:41)
--- NOTE | 2016-11-15 00:19 | OP ---
DATE OF SURGERY: 11/14/2016 PREOPERATIVE DIAGNOSES: 1. Closed left distal radius fracture, comminuted, extraarticular. 2. Left elbow dislocation. POSTOPERATIVE DIAGNOSES: 1. Open fracture, distal radius and ulna. 2. Closed left elbow dislocation. PROCEDURES PERFORMED: 1. Open treatment, internal fixation distal radius extra-articular fracture with plate and screw fixation of the radius. 2. Irrigation and debridement for open fracture including skin, subcutaneous tissue, and bone. 3. Closed reduction left elbow dislocation. SURGEON: Jorge Alberto Arredondo MD [employer]: Demetrice Truong PA-C. ANESTHESIA: General. ESTIMATED BLOOD LOSS: 25 mL. COMPLICATIONS: None. SPECIMENS: None. DRAINS: None. TOURNIQUET TIME: 50 minutes. INDICATIONS: The patient was a 36-year-old right-handed man who fell off a ladder earlier today. He was described as having a closed fracture with a small abrasion not close enough to be an open fracture. He had an elbow dislocation. I spoke to him about the risks and benefits of proceeding with surgery. He had a markedly displaced distal radius fracture. I recommended open treatment with internal fixation of the radius fracture, and closed reduction of the elbow in the operating room. We discussed the potential risks of infection, neurovascular injury, need for hardware removal, bleeding, stiffness, scarring, or other potential surgical or anesthetic complications. All of his questions about surgery were answered and he desired to proceed. Written consent was obtained. DESCRIPTION OF PROCEDURE: The patient was identified in the preoperative holding area. The correct left elbow and hand were marked by me. He was taken to the operating room where a general anesthetic was used. Preoperative antibiotics were given intravenously. A timeout procedure was performed. His prior splint was removed. He had a loss of gross dirt contamination from his job, and a simple chlorhexidine scrub was done to remove the superficial dirt. It was noted that there was persistent bleeding from the area that had been described as an abrasion, and this appears to be a puncture type, grade 1 open fracture. It is on the volar aspect near the ulna, although may be a puncture related to the radius. An elbow reduction was performed using the image intensifier. I was able to keep the elbow reduced, if I held the elbow in extension. Once I flex the elbow, both the radius and the ulna seem to dislocate. The dislocation is very unstable, and further treatment may be necessary. There seems to be instability along the radial side and I am suspicious for radial ulnar collateral ligament disruption. The elbow was felt to be stable in extension and the plan was to splint that in extension at the end of the case. A tourniquet was placed on the upper arm. A simple closed reduction was performed to help with the surgical exposure anatomy. The limb was prepped with ChloraPrep circumferentially from the tourniquet to the fingertips and sterile drapes were applied. An Esmarch bandage was used to exsanguinate the limb and the tourniquet was inflated to 275 mmHg. The open wound was debrided with a rongeur including skin and subcutaneous tissue. The volar approach of Colby was used over the forearm. The flexor carpi radialis was carefully retracted. The floor of the FCR sheath was divided and the volar forearm approach was used. The brachioradialis was retracted radially to protect the radial artery. The flexor pollicis longus was retracted ulnarly to protect the median nerve. There was extensive traumatic muscle dissection, which had already occurred. Blunt Weitlaner retractor was placed. The fracture was identified. There was marked comminution here, more than what is seen on the x-rays. Reduction initially was difficult because the fracture is so comminuted and displaced. I debrided some comminuted bone at this point , due to the open fracture, and removed some of the totally devitalized bone related to the open fracture. Eventually I was able to place a fields elevator into the fracture site, lever and disengage the fragments, and achieve a more satisfactory reduction. I used two 0.045 inch K wires to stabilize the preliminary reduction. I used the image intensifier throughout, and interpreted all of this images myself. Once a satisfactory preliminary reduction was obtained the plate was applied. I used the Acumed locking plate for the volar aspect of the distal radius. This was the more narrowed of the plates rather than the wide as it seemed to fit his radius appropriately. The oval hole was placed first with a bicortical screw, and final adjustments to the plate position were made using the image intensifier. I then placed a single nonlocking screw distally to secure the bone to the plate. Finally, I placed locking screws through the guide into the distal plate and distal fragments. Additional locking screws were placed in the shaft through the plate proximal holes. Secure reduction and fixation was obtained. The K-wires were removed. Images AP, lateral and oblique plane showed satisfactory reduction and fixation. The tourniquet was released. Copious irrigation was used. Saline was used throughout. Bovie electrocautery was used for hemostasis. The skin edges were injected with 0.25% Marcaine with epinephrine. The incision was now closed in layers using 3-0 Vicryl and then wilder. Needle and sponge counts were correct. Xeroform and a sterile dressing were applied. The elbow was approached again with the image intensifier, and the reduction confirmed with the elbow in extension. A splint was applied with the elbow in extension. Jorge Alberto Arredondo MD DR: JOSE/mango JOB#: [id number] / [id number]
[2016-11-15 03:02] VITALS: BP 126/77
[2016-11-15 04:32] LABS: BASO % 0 % (0-3); EOS % 0 % (0-3); HEMATOCRIT 41.3 % (39.0-53.0); HEMOGLOBIN 13.3 g/dL (13.0-17.5); LYMPH # 1.4 x10^3/uL (1.0-4.8); LYMPH % 10 % (24-48); MEAN CORPUSCULAR HEMOGLOBIN 27 pg (25-35); MEAN CORPUSCULAR HGB CONC 32 g/dL (31-37); MEAN CORPUSCULAR VOLUME 85 fL (79-100); MONO % 6 % (0-9); NEUT % 84 % (31-73); PLATELET COUNT 301 x10^3/uL (140-400); RED BLOOD COUNT 4.85 x10^6/uL (4.30-5.70); RED CELL DISTRIBUTION WIDTH 14.3 % (11.5-14.5); WHITE BLOOD COUNT 13.5 x10^3/uL (4.0-11.0)
[2016-11-15 04:41] LABS: CALCIUM 8.8 mg/dL (8.5-10.1); CREATININE 1.1 mg/dL (0.7-1.3); GFR 75.7; POTASSIUM 4.7 mmol/L (3.5-5.1)
[2016-11-15] MEDS: CEFAZOLIN 2GM PREMIX 50 ML IV SCH ×3 (05:29→16:54)
[2016-11-15] MEDS: KETOROLAC TROMETHAMINE 30 MG/ML INJ. IV SCH ×3 (05:29→17:57)
[2016-11-15] MEDS ORDERED: MAGNESIUM HYDROXIDE 2,400 MG/30 ML ORAL.SUSP. PO PRN (06:00)
[2016-11-15 07:00] VITALS: BP 128/71
[2016-11-15] MEDS: INSULIN ASPART 300 UNITS/3 ML INSULN.PEN SQ SCH ×2 (08:00→12:00)
[2016-11-15] MEDS: DOCUSATE SODIUM 100 MG CAPSULE. PO SCH (08:40)
[2016-11-15] MEDS: ASCORBIC ACID 500 MG TABLET PO SCH ×2 (08:40→21:27)
[2016-11-15] MEDS: ASPIRIN 325 MG TABLET PO SCH (08:40)
[2016-11-15] MEDS ORDERED: SENNOSIDES/DOCUSATE 8.6/50MG TABLET. PO SCH (09:00)
[2016-11-15] MEDS ORDERED: CHOLECALCIFEROL (VITAMIN D3) 1,000 UNIT TABLET PO SCH (09:00)
[2016-11-15 11:00] VITALS: BP 132/83
[2016-11-15] MEDS: POLYETHYLENE GLYCOL 3350 17 GM PACKET. PO SCH (11:03)
[2016-11-15] MEDS ORDERED: MAGNESIUM HYDROXIDE 2,400 MG/30 ML ORAL.SUSP. PO ONE (12:00)
--- NOTE | 2016-11-15 12:56 | PDOC ---
PROGRESS NOTES Chief Complaint Chief Complaint Trauma admit, s.p fall left elbow dislocation, closed left wrist fracture, traumatic and displaced distal radius fracture with ulnar fracture Leukocytosis, SIRS, not infectious, obesity, BMI 37 History of Present Illness History of Present Illness s/p ORIF POD #1, left elbow still dislocated, MRI today to eval Ortho following pt feels well, arm not stable in sling Vitals Vitals Vital Signs Date Time Temp Pulse Resp B/P Pulse Ox O2 Delivery O2 Flow Rate FiO2 11/15/16 11:00 98.2 82 18 132/83 97 Room Air 98.2 11/15/16 03:02 2.0 Physical Exam General: Alert, Cooperative, moderate distress, Other (diaphoretic) Heart: Regular rate, Normal S1, Normal S2 Abdomen: Normal bowel sounds, Soft Extremities: No edema, Other Skin: No rashes, No significant lesion Labs LABS Laboratory Tests Test 11/15/16 03:35 11/15/16 07:42 11/15/16 11:00 White Blood Count 13.5x10^3/uL (4.0-11.0) Red Blood Count 4.85x10^6/uL (4.30-5.70) Hemoglobin 13.3g/dL (13.0-17.5) Hematocrit 41.3% (39.0-53.0) Mean Corpuscular Volume 85fL (79-100) Mean Corpuscular Hemoglobin 27pg (25-35) Mean Corpuscular Hemoglobin Concent 32g/dL (31-37) Red Cell Distribution Width 14.3% (11.5-14.5) Platelet Count 301x10^3/uL (140-400) Neutrophils (%) (Auto) 84% (31-73) Lymphocytes (%) (Auto) 10% (24-48) Monocytes (%) (Auto) 6% (0-9) Eosinophils (%) (Auto) 0% (0-3) Basophils (%) (Auto) 0% (0-3) Neutrophils # (Auto) 11.4x10^3uL (1.8-7.7) Lymphocytes # (Auto) 1.4x10^3/uL (1.0-4.8) Monocytes # (Auto) 0.8x10^3/uL (0.0-1.1) Eosinophils # (Auto) 0.0x10^3/uL (0.0-0.7) Basophils # (Auto) 0.0x10^3/uL (0.0-0.2) Sodium Level 138mmol/L (136-145) Potassium Level 4.7mmol/L (3.5-5.1) Chloride Level 102mmol/L (98-107) Carbon Dioxide Level 26mmol/L (21-32) Anion Gap 10 (6-14) Blood Urea Nitrogen 15mg/dL (8-26) Creatinine 1.1mg/dL (0.7-1.3) Estimated GFR (Cockcroft-Gault) 75.7 Glucose Level 174mg/dL (70-99) Calcium Level 8.8mg/dL (8.5-10.1) Glucose (Fingerstick) 126mg/dL (70-99) 119mg/dL (70-99) Review of Systems Review of Systems pain better no stool no n.v.d Assessment and Plan Assessmemt and Plan Problems Medical Problems: (1) Dislocation of left elbow Status: Acute (2) Distal radius fracture, left Status: Acute Problems: Comment Review of Relevant I have reviewed the following items mk (where applicable) has been applied. Labs Laboratory Tests Test 11/14/16 09:52 11/15/16 03:35 11/15/16 07:42 11/15/16 11:00 White Blood Count 14.5x10^3/uL (4.0-11.0) 13.5x10^3/uL (4.0-11.0) Red Blood Count 5.49x10^6/uL (4.30-5.70) 4.85x10^6/uL (4.30-5.70) Hemoglobin 15.3g/dL (13.0-17.5) 13.3g/dL (13.0-17.5) Hematocrit 45.7% (39.0-53.0) 41.3% (39.0-53.0) Mean Corpuscular Volume 83fL (79-100) 85fL (79-100) Mean Corpuscular Hemoglobin 28pg (25-35) 27pg (25-35) Mean Corpuscular Hemoglobin Concent 34g/dL (31-37) 32g/dL (31-37) Red Cell Distribution Width 14.2% (11.5-14.5) 14.3% (11.5-14.5) Platelet Count 413x10^3/uL (140-400) 301x10^3/uL (140-400) Neutrophils (%) (Auto) 58% (31-73) 84% (31-73) Lymphocytes (%) (Auto) 34% (24-48) 10% (24-48) Monocytes (%) (Auto) 6% (0-9) 6% (0-9) Eosinophils (%) (Auto) 1% (0-3) 0% (0-3) Basophils (%) (Auto) 1% (0-3) 0% (0-3) Neutrophils # (Auto) 8.3x10^3uL (1.8-7.7) 11.4x10^3uL (1.8-7.7) Lymphocytes # (Auto) 5.0x10^3/uL (1.0-4.8) 1.4x10^3/uL (1.0-4.8) Monocytes # (Auto) 0.9x10^3/uL (0.0-1.1) 0.8x10^3/uL (0.0-1.1) Eosinophils # (Auto) 0.1x10^3/uL (0.0-0.7) 0.0x10^3/uL (0.0-0.7) Basophils # (Auto) 0.1x10^3/uL (0.0-0.2) 0.0x10^3/uL (0.0-0.2) Sodium Level 143mmol/L (136-145) 138mmol/L (136-145) Potassium Level 4.5mmol/L (3.5-5.1) 4.7mmol/L (3.5-5.1) Chloride Level 104mmol/L (98-107) 102mmol/L (98-107) Carbon Dioxide Level 26mmol/L (21-32) 26mmol/L (21-32) Anion Gap 13 (6-14) 10 (6-14) Blood Urea Nitrogen 16mg/dL (8-26) 15mg/dL (8-26) Creatinine 1.3mg/dL (0.7-1.3) 1.1mg/dL (0.7-1.3) Estimated GFR (Cockcroft-Gault) 62.5 75.7 Glucose Level 179mg/dL (70-99) 174mg/dL (70-99) Calcium Level 9.6mg/dL (8.5-10.1) 8.8mg/dL (8.5-10.1) Glucose (Fingerstick) 126mg/dL (70-99) 119mg/dL (70-99) Laboratory Tests Test 11/15/16 03:35 11/15/16 07:42 11/15/16 11:00 White Blood Count 13.5x10^3/uL (4.0-11.0) Red Blood Count 4.85x10^6/uL (4.30-5.70) Hemoglobin 13.3g/dL (13.0-17.5) Hematocrit 41.3% (39.0-53.0) Mean Corpuscular Volume 85fL (79-100) Mean Corpuscular Hemoglobin 27pg (25-35) Mean Corpuscular Hemoglobin Concent 32g/dL (31-37) Red Cell Distribution Width 14.3% (11.5-14.5) Platelet Count 301x10^3/uL (140-400) Neutrophils (%) (Auto) 84% (31-73) Lymphocytes (%) (Auto) 10% (24-48) Monocytes (%) (Auto) 6% (0-9) Eosinophils (%) (Auto) 0% (0-3) Basophils (%) (Auto) 0% (0-3) Neutrophils # (Auto) 11.4x10^3uL (1.8-7.7) Lymphocytes # (Auto) 1.4x10^3/uL (1.0-4.8) Monocytes # (Auto) 0.8x10^3/uL (0.0-1.1) Eosinophils # (Auto) 0.0x10^3/uL (0.0-0.7) Basophils # (Auto) 0.0x10^3/uL (0.0-0.2) Sodium Level 138mmol/L (136-145) Potassium Level 4.7mmol/L (3.5-5.1) Chloride Level 102mmol/L (98-107) Carbon Dioxide Level 26mmol/L (21-32) Anion Gap 10 (6-14) Blood Urea Nitrogen 15mg/dL (8-26) Creatinine 1.1mg/dL (0.7-1.3) Estimated GFR (Cockcroft-Gault) 75.7 Glucose Level 174mg/dL (70-99) Calcium Level 8.8mg/dL (8.5-10.1) Glucose (Fingerstick) 126mg/dL (70-99) 119mg/dL (70-99) Medications Current Medications Sodium Chloride (Iv Sodium Chloride 0.9% 1000ml Bag) 1,000 ml @ 1,000 mls/hr Q1H IV Last administered on 11/14/16 10:06; Start 11/14/16 at 09:56; Stop at 10:55; Status DC Ondansetron HCl (Zofran) 4 mg 1X ONCE IV Last administered on 11/14/16 10:06; Start 11/14/16 at 10:30; Stop 11/14/16 at 10:31; Status DC Hydromorphone HCl (Dilaudid) 1 mg PRN Q15MIN PRN IV/SQ PAIN GREATER THAN 3/10 Last administered on 11/14/16 11:11; Start 11/14/16 at 10:30; Stop 11/14/16 at 12: 34; Status DC Ondansetron HCl (Zofran) 4 mg STK-MED ONCE .ROUTE ; Start 11/14/16 at 10:01; Stop 11/14/16 at 10:02; Status DC Hydromorphone HCl (Dilaudid) 2 mg STK-MED ONCE .ROUTE ; Start 11/14/16 at 10:01; Stop 11/14/16 at 10:02; Status DC Ondansetron HCl 4 mg 4 mg PRN Q8HRS PRN IV NAUSEA/VOMITING; Start 11/14/16 at 10 :45; Stop 11/15/16 at 10:44; Status DC Sodium Chloride (Iv Sodium Chloride 0.9% 1000ml Bag) 1,000 ml @ 100 mls/hr Q10H IV ; Start 11/14/16 at 10:40; Stop 11/14/16 at 12:55; Status DC Acetaminophen (Tylenol) 650 mg PRN Q4HRS PRN PO FEVER; Start 11/14/16 at 10:45; Stop 11/15/16 at 10:44; Status DC Hydromorphone HCl (Dilaudid) 1 mg PRN Q2HR PRN PO PAIN; Start 11/14/16 at 10:45 ; Stop 11/14/16 at 14:08; Status DC Hydromorphone HCl 1 mg 1 mg PRN Q2HR PRN IV PAIN Last administered on 11/14/16 12:30; Start 11/14/16 at 12:30; Stop 11/14/16 at 14:13; Status DC Potassium Chloride/Dextrose/ Sod Cl 1,000 ml @ 125 mls/hr Q8H IV Last administered on 11/14/16 23:46; Start 11/14/16 at 13:00 Cefazolin Sodium/ Dextrose (Ancef 2gm Premix) 50 ml @ 100 mls/hr 1X ONCE IV Last administered on 11/14/16 17:14; Start 11/14/16 at 14:00; Stop 11/14/16 at 14: 29; Status DC Morphine Sulfate 10 mg PRN Q2HR PRN IV PAIN Last administered on 11/14/16 13:48 ; Start 11/14/16 at 13:45 Insulin Aspart (Novolog) 0-7 UNITS TIDWMEALS SQ ; Start 11/14/16 at 17:00 Dextrose (Dextrose 50%-Water Syringe) 12.5 gm PRN Q15MIN PRN IV SEE COMMENTS; Start 11/14/16 at 13:45 Ketorolac Tromethamine (Toradol) 30 mg 1X ONCE IV Last administered on 13:48; Start 11/14/16 at 14:00; Stop 11/14/16 at 14:01; Status DC Hydromorphone HCl (Dilaudid) 1.6 mg PRN Q2HR PRN PO PAIN; Start 11/14/16 at 14: 15; Stop 11/14/16 at 14:15; Status DC Hydromorphone HCl (Dilaudid) 2 mg PRN Q2HR PRN PO PAIN; Start 11/14/16 at 14:15 Hydromorphone HCl (Dilaudid) 1.6 mg PRN Q2HR PRN IV PAIN Last administered on 15:11; Start 11/14/16 at 14:15 Diphenhydramine HCl (Benadryl) 25 mg 1X ONCE IVP Last administered on 15:15; Start 11/14/16 at 14:30; Stop 11/14/16 at 14:31; Status DC Famotidine (Pepcid) 20 mg QHS PO ; Start 11/14/16 at 21:00 Docusate Sodium (Colace) 100 mg DAILY PO Last administered on 11/15/16 08:40; Start 11/14/16 at 21:00 Polyethylene Glycol 17 gm 17 gm PRN DAILY PRN PO CONSTIPATION; Start 11/14/16 at 15:00; Stop 11/15/16 at 09:00; Status DC Lactated Ringer's (Iv Lactated Ringers) 1,000 ml @ 100 mls/hr Q10H IV Last administered on 11/14/16 16:38; Start 11/14/16 at 16:45; Stop 11/14/16 at 20:27; Status DC Bupivacaine HCl/ Epinephrine Bitart (Sensorcaine-Epi 0.25%-1:087740 Mpf) 30 ml STK-MED ONCE INJ Last administered on 11/14/16 17:23; Start 11/14/16 at 17:23; Stop 11/14/16 at 18:34; Status DC Oxycodone HCl (Roxicodone) 5 mg PRN Q3HRS PRN PO PAIN; Start 11/14/16 at 19:30 Morphine Sulfate 2 mg PRN Q1HR PRN IV PAIN; Start 11/14/16 at 19:30 Fentanyl Citrate (Fentanyl 2ml Vial) 25 mcg PRN Q1HR PRN IV PAIN; Start at 19:30 Senna/Docusate Sodium (Senna Plus) 1 tab DAILY PO Last administered on 08:40; Start 11/15/16 at 09:00 Polyethylene Glycol (miraLAX PACKET) 17 gm PRN DAILY PRN PO CONSTIPATION; Start 11/14/16 at 19:30; Status UNV Ondansetron HCl (Zofran) 4 mg PRN Q4HRS PRN IV NAUSEA/VOMITING; Start 11/14/16 at 19:30 Aspirin (Rika Aspirin) 325 mg DAILYWBKFT PO Last administered on 11/15/16 08: 40; Start 11/15/16 at 08:00 Magnesium Hydroxide (Milk Of Magnesia) 2,400 mg 1X PRN PRN PO CONSTIPATION; Start 11/15/16 at 06:00; Stop 11/15/16 at 11:47; Status DC Bisacodyl (Dulcolax Supp) 10 mg 1X PRN PRN [place] CONSTIPATION; Start 11/15/16 at 16 :00; Stop 11/16/16 at 15:59 Acetaminophen/ Hydrocodone Bitart (Lortab 7.5/325) 1 tab PRN Q4HRS PRN PO PAIN Last administered on 11/14/16 23:45; Start 11/14/16 at 19:30 Morphine Sulfate 4 mg PRN Q2HR PRN IV PAIN; Start 11/14/16 at 19:30 Acetaminophen/ Hydrocodone Bitart (Lortab 7.5/325) 2 tab PRN Q4HRS PRN PO PAIN ; Start 11/14/16 at 19:30 Dextrose 12.5 gm 12.5 gm PRN Q15MIN PRN IV SEE COMMENTS; Start 11/14/16 at 19:30 ; Status UNV Cefazolin Sodium/ Dextrose (Ancef 2gm Premix) 50 ml @ 100 mls/hr Q6H IV ; Start 11/14/16 at 19:45; Stop 11/14/16 at 19:45; Status DC Ketorolac Tromethamine 30 mg 30 mg Q6HRS IV Last administered on 11/15/16 05:29 ; Start 11/15/16 at 00:00; Stop 11/20/16 at 00:00 Cefazolin Sodium/ Dextrose (Ancef 2gm Premix) 50 ml @ 100 mls/hr Q6H IV Last administered on 11/15/16 11:04; Start 11/14/16 at 23:00; Stop 11/16/16 at 05:29 Ascorbic Acid (Vitamin C) 500 mg BID PO Last administered on 11/15/16 08:40; Start 11/14/16 at 21:00 Vitamin D (Vitamin D3) 1,000 unit DAILY PO Last administered on 11/15/16 08:40 ; Start 11/15/16 at 09:00 Polyethylene Glycol (miraLAX PACKET) 17 gm DAILY PO Last administered on t 11:03; Start 11/15/16 at 09:00 Bupivacaine HCl/ Epinephrine Bitart (Sensorcaine-Epi 0.25%-1:254767 Mpf) 30 ml STK-MED ONCE .ROUTE ; Start 11/14/16 at 16:32; Stop 11/15/16 at 11:25; Status DC Lidocaine HCl 100 mg 100 mg STK-MED ONCE .ROUTE ; Start 11/14/16 at 16:51; Stop 11/15/16 at 11:25; Status DC Propofol (Diprivan) 20 ml @ As Directed STK-MED ONCE IV ; Start 11/14/16 at 16:52 ; Stop 11/15/16 at 11:25; Status DC Dexamethasone Sodium Phosphate (Decadron) 20 mg STK-MED ONCE .ROUTE ; Start 11/14 at 16:52; Stop 11/15/16 at 11:25; Status DC Dexamethasone Sodium Phosphate (Decadron) 20 mg STK-MED ONCE .ROUTE ; Start 11/14 at 16:52; Stop 11/15/16 at 11:25; Status DC Ondansetron HCl (Zofran) 4 mg STK-MED ONCE .ROUTE ; Start 11/14/16 at 16:53; Stop 11/15/16 at 11:25; Status DC Fentanyl Citrate (Fentanyl 5ml Vial) 250 mcg STK-MED ONCE .ROUTE ; Start at 16:54; Stop 11/15/16 at 11:25; Status DC Midazolam HCl (Versed) 2 mg STK-MED ONCE .ROUTE ; Start 11/14/16 at 16:54; Stop 11/15/16 at 11:26; Status DC Ketorolac Tromethamine (Toradol For Or Only) 60 mg STK-MED ONCE .ROUTE ; Start 11/14/16 at 18:50; Stop 11/15/16 at 11:26; Status DC Fentanyl Citrate (Fentanyl 2ml Vial) 100 mcg STK-MED ONCE .ROUTE ; Start at 19:15; Stop 11/15/16 at 11:27; Status DC Desflurane (Suprane) 90 ml STK-MED ONCE IH ; Start 11/14/16 at 19:16; Stop at 11:27; Status DC Magnesium Hydroxide (Milk Of Magnesia) 2,400 mg 1X ONCE PO ; Start 11/15/16 at 12:00; Stop 11/15/16 at 12:01; Status DC Vitals/I & O Vital Sign - Last 24 Hours 11/14/16 11/14/16 11/14/16 11/14/16 13:00 13:48 14:21 15:00 Temp 98.3 98.3 Pulse 81 Resp 16 16 16 18 B/P 138/87 Pulse Ox 98 O2 Delivery Nasal Cannula Nasal Cannula Nasal Cannula Room Air O2 Flow Rate 2.0 2.0 2.0 11/14/16 11/14/16 11/14/16 11/14/16 15:11 15:41 16:22 19:18 Temp 97.1 97.2 97.1 97.2 Pulse 91 94 Resp 16 20 20 15 B/P 154/89 187/97 Pulse Ox 97 100 O2 Delivery Room Air Nasal Cannula Room Air Simple Mask O2 Flow Rate 2.0 10 11/14/16 11/14/16 11/14/16 11/14/16 19:33 19:48 20:00 20:00 Temp 97.2 97.8 98.8 97.2 97.8 98.8 Pulse 81 79 84 Resp 12 15 12 B/P 152/78 170/92 143/84 Pulse Ox 99 94 97 O2 Delivery Room Air Room Air Nasal Cannula Nasal Cannula O2 Flow Rate 2.0 2.0 11/14/16 11/14/16 11/14/16 11/14/16 20:00 20:15 20:30 20:45 Pulse 84 99 92 78 B/P 153/90 148/83 136/66 149/92 Pulse Ox 98 95 97 95 O2 Delivery Nasal Cannula Nasal Cannula Nasal Cannula Nasal Cannula O2 Flow Rate 2.0 2.0 2.0 2.0 11/14/16 11/14/16 11/14/16 11/14/16 21:15 21:45 22:45 23:45 Pulse 78 90 83 B/P 131/89 140/94 138/85 Pulse Ox 97 95 93 93 O2 Delivery Nasal Cannula Nasal Cannula Nasal Cannula Nasal Cannula O2 Flow Rate 2.0 2.0 2.0 2.0 11/14/16 11/15/16 11/15/164/17 23:45 00:45 03:02 07:00 Temp 97.7 97.7 Pulse 72 77 72 Resp 20 18 B/P 134/74 126/77 128/71 Pulse Ox 97 93 96 99 O2 Delivery Nasal Cannula Nasal Cannula Room Air O2 Flow Rate 2.0 2.0 2.0 11/15/16 11:00 Temp 98.2 98.2 Pulse 82 Resp 18 B/P 132/83 Pulse Ox 97 O2 Delivery Room Air Intake and Output 11/14/16 11/14/16 11/15/16 15:00 23:00 07:00 Intake Total 1000 ml 750 ml Output Total 775 ml 750 ml Balance 1000 ml -25 ml -750 ml LAVONNE PETIT MD Nov 15, 2016 12:56
[2016-11-15] MEDS: HYDROCODONE/APAP 7.5/325MG TABLET. PO PRN ×2 (13:54→19:50)
--- NOTE | 2016-11-15 14:16 | RAD ---
PROCEDURE MR of the left elbow HISTORY Left elbow pain after falling off a ladder yesterday. Unsuccessful relocation. TECHNIQUE Standard routine multiplanar sequences are obtained. COMPARISON None FINDINGS Moderate motion degradation on the exam. Posterior dislocation and proximal overriding of the ulna and radius, relative to the distal humerus. Moderate complex or hemorrhagic joint effusion. The axial images do not extend far enough distally to completely include the biceps tendon insertion but no obvious tear. Brachialis tendon is intact, but there is a mild strain with partial tearing of the brachialis muscle tissue. Triceps tendon intact, with high-grade intramuscular partial tearing of the distal triceps muscle. Ulnar collateral ligament not visualized and a complete rupture is suspected. The common flexor tendon is diffusely heterogeneous compatible with at least partial tearing. Poor visualization of the common extensor tendon, radial collateral ligament and lateral ulnar collateral ligament, compatible with high-grade tearing or rupture. There is no evidence of acute fracture or aggressive bone destruction. There is generalized soft tissue edema and hemorrhage around the elbow. IMPRESSION 1. Posterior elbow dislocation. 2. Ulnar collateral ligament rupture, and at least partial common flexor tendon tearing. 3. High-grade tearing of common extensor tendon, radial collateral ligament and lateral ulnar collateral ligament. 4. Diffuse soft tissue injury with intramuscular tearing, particularly at the triceps muscle and to a lesser extent brachialis muscle. Electronically signed by: Kenrick Cabello MD (Nov 15, 2016 14:14:30)
[2016-11-15 15:00] VITALS: BP 126/74
--- NOTE | 2016-11-15 15:44 | PDOC ---
Provider Note Provider Note Devin's left elbow MRI images and report were reviewed by Dr. Arredondo and Sheila. We discussed those results with the patient and his family at bedside. Dr. Arredondo recommends left elbow open reduction with ligament and tendon repair or reconstruction with hamstring autograft and possible allograft. The surgical procedure and associated risks were explained to the patient and his family and he desires to proceed. Scheduled for OR tomorrow, 11/16/16 at 0730. ROBERT SIMS Nov 15, 2016 15:44
[2016-11-15] MEDS ORDERED: BISACODYL 10 MG SUPP.RECT. PR PRN (16:00)
[2016-11-15] MEDS: POTASSIUM CL 20MEQ D5-0.45NACL 1,000 ML IV SCH (16:51)
[2016-11-15] MEDS: MORPHINE SULFATE 10 MG/ML VIAL. IV PRN (17:10)
[2016-11-15 19:00] VITALS: BP 124/79
[2016-11-15] MEDS: FAMOTIDINE 20 MG TABLET. PO SCH (21:00)
[2016-11-15 23:00] VITALS: BP 126/73
[2016-11-16] VITALS (8 sets, daily range): BP systolic 118–145; BP diastolic 71–86
[2016-11-16] MEDS: CEFAZOLIN 2GM PREMIX 50 ML IV SCH ×2 (00:22→05:40)
[2016-11-16] MEDS: KETOROLAC TROMETHAMINE 30 MG/ML INJ. IV SCH ×3 (00:23→11:45)
[2016-11-16] MEDS: POTASSIUM CL 20MEQ D5-0.45NACL 1,000 ML IV SCH ×3 (00:24→10:45)
[2016-11-16] MEDS ORDERED: LIDOCAINE 2% 100 MG/5 ML SYRINGE. ONE (06:43)
[2016-11-16] MEDS ORDERED: PROPOFOL 20 ML IV ONE (06:43)
[2016-11-16] MEDS ORDERED: ONDANSETRON PF 4 MG/2 ML VIAL. ONE (06:43)
[2016-11-16] MEDS ORDERED: MORPHINE SULFATE 2 MG/ML DISP.SYRIN. IV PRN ×2 (07:00→09:15)
[2016-11-16] MEDS ORDERED: HYDROMORPHONE 2 MG/ML VIAL. IV PRN (07:00)
[2016-11-16] MEDS ORDERED: LIDOCAINE 1% 1 ML SYRINGE. ID PRN (07:00)
[2016-11-16] MEDS ORDERED: IV RINGERS,LACTATED 1000ML 1,000 ML IV SCH (07:00)
[2016-11-16] MEDS ORDERED: PROCHLORPERAZINE 10 MG/2 ML VIAL. IV PRN (07:00)
[2016-11-16] MEDS ORDERED: FENTANYL PF 100 MCG/2 ML VIAL. IV PRN ×2 (07:00→09:15)
[2016-11-16] MEDS ORDERED: ONDANSETRON PF 4 MG/2 ML VIAL. IV PRN ×2 (07:00→09:15)
[2016-11-16] MEDS ORDERED: BUPIVACAINE-EPI 0.25%-1:200000 50 ML VIAL. ONE (07:02)
[2016-11-16] MEDS ORDERED: FENTANYL PF 250 MCG/5 ML VIAL. ONE (07:18)
[2016-11-16] MEDS ORDERED: MIDAZOLAM HCL/PF 2 MG/2 ML VIAL. ONE (07:26)
[2016-11-16] MEDS ORDERED: DEXAMETHASONE SOD PHOS 20 MG/5 ML VIAL. ONE (07:27)
[2016-11-16] MEDS ORDERED: SEVOFLURANE 61 TO 120 MINUTES. IH ONE (08:26)
[2016-11-16] MEDS ORDERED: ERGOCALCIFEROL (VITAMIN D2) 50,000 UNIT CAPSULE. PO SCH (09:00)
[2016-11-16] MEDS: FENTANYL PF 100 MCG/2 ML VIAL. IV PRN ×2 (09:13→09:34)
[2016-11-16] MEDS ORDERED: DEXTROSE 50% 25 GM / 50ML DISP.SYRIN. IV PRN (09:15)
[2016-11-16] MEDS ORDERED: MORPHINE SULFATE 4 MG/ML DISP.SYRIN. IV PRN (09:15)
[2016-11-16] MEDS ORDERED: OXYCODONE IR 5 MG TABLET. PO PRN (09:15)
[2016-11-16] MEDS ORDERED: POLYETHYLENE GLYCOL 3350 17 GM PACKET. PO PRN (09:15)
[2016-11-16] MEDS ORDERED: HYDROCODONE/APAP 7.5/325MG TABLET. PO PRN (09:15)
--- NOTE | 2016-11-16 09:26 | PDOC ---
BRIEF OPERATIVE NOTE Date: Nov 16, 2016 Pre-Op Diagnosis Left elbow dislocation, lateral elbow ligament ruptures including lateral ulnar collateral ligament and radial collateral ligament, and extensor tendon disruption at the lateral elbow Post-Op Diagnosis Same Procedure Performed Lateral elbow ligament repairs including radial collateral and lateral ulnar collateral ligaments. Extensor tendon repair at the elbow Open reduction elbow dislocation Surgeon Maria Elena Anesthesiology Physician Jaylin Truong PA-C Blood Loss 25 mL Specimens Obtained None Findings As above Complications None Additional Remarks Tourniquet time 27 minutes job [id number] LILIAM MEZA MD Nov 16, 2016 09:26
[2016-11-16] MEDS ORDERED: CHOLECALCIFEROL (VITAMIN D3) 5,000 UNIT CAPSULE PO SCH (10:00)
[2016-11-16] MEDS: POLYETHYLENE GLYCOL 3350 17 GM PACKET. PO SCH (11:45)
[2016-11-16] MEDS: DOCUSATE SODIUM 100 MG CAPSULE. PO SCH (11:45)
[2016-11-16] MEDS: HYDROCODONE/APAP 7.5/325MG TABLET. PO PRN ×2 (11:45→16:07)
[2016-11-16] MEDS: ASPIRIN 325 MG TABLET PO SCH (11:45)
[2016-11-16] MEDS: ASCORBIC ACID 500 MG TABLET PO SCH (11:45)
--- NOTE | 2016-11-16 11:55 | OP ---
DATE OF SURGERY: 11/16/2016 PREOPERATIVE DIAGNOSES: 1. Left elbow dislocation. 2. Left elbow extensor tendon tear. 3. Left elbow lateral elbow ligament tear. POSTOPERATIVE DIAGNOSES: 1. Left elbow dislocation. 2. Left elbow extensor tendon tear. 3. Left elbow lateral elbow ligament tear. PROCEDURE: 1. Elbow ligament repairs, lateral ulnar collateral ligament and lateral collateral ligament with suture anchor repair at the lateral epicondyle. 2. Extensor tendon repair with suture anchor repair at the proximal lateral epicondyle. 3. Open reduction of the elbow dislocation. SURGEON: Jorge Alberto Arredondo M.D. LICENSED MORTICIAN: Jaylin Arellano M.D., and Demetrice Truong PA-C. ANESTHESIA: General. ESTIMATED BLOOD LOSS: 25 mL. COMPLICATIONS: None. SPECIMENS: None. DRAINS: None. TOURNIQUET TIME: 27 minutes. INDICATIONS FOR PROCEDURE: The patient is a 36-year-old man who fell on an outstretched hand two days ago and had severe wrist fracture and an elbow dislocation. A reduction done two days ago in the operating room was unstable, and did not remain reduced on postoperative splinting and MRI. I recommended that we proceed with an open reduction, and ligament or tendon repairs or reconstructions as needed to achieve stability. We talked about the potential risks of surgery such as nerve injury, stiffness, redislocation, recurrent instability, bleeding, infection or other potential surgical and anesthetic complications. All of the questions from the patient and his family were answered and they desired to proceed. Written consent was obtained. PROCEDURE IN DETAIL: The patient was identified in the preoperative holding area. The correct left arm was marked. The patient was taken to the operating room where a general anesthetic was used. Preoperative antibiotics were given intravenously. A timeout procedure was performed. The patient was supine on the operating table. The previous splint was removed. Sterile dressings were kept over the wrist incision. A preliminary reduction was obtained by Dr. Arellano but was unstable. We decided to proceed with an open reduction and fixation. The limb was scrubbed first with chlorhexidine to remove the surface contamination. It was dried. The sterile dressings of the wrist were then removed. The entire limb was prepped circumferentially with Betadine. Sterile drapes were applied with an impervious stockinette over the lower arm. A sterile tourniquet was applied. An Esmarch bandage was used to exsanguinate the limb. The tourniquet was inflated to 275 mmHg. Lateral oblique incision was used over the lateral epicondyle and lateral elbow extending towards the radial head and the ulna. Sharp dissection was used and Bovie electrocautery was used as needed for hemostasis. The extensor tendon was completely detached from the humerus. Careful scissor dissection was used to expose the extensor tendon and the lateral ligaments. The joint was easily identified, and had been dramatically opened. Copious irrigation was used in the joint. The fragments of cartilage were removed from the joint, probably from the trochlear side. There was no extensive damage of the joint on visualization, the radial head, the capitellum and the visualized portion of the coronoid and olecranon articular surface all appeared normal. After those fragments were removed, an open reduction was performed. The radiocapitellar joint was able to be reduced, but remained somewhat unstable. really was anterior and posterior instability, fairly significant detachment of the soft tissues here. Once the radial collateral ligament and lateral ulnar collateral ligament were brought up to the lateral epicondyle, the elbow seemed stable. Suture anchor repair was performed first of the lateral ligaments. Biomet 2.9 mm JuggerKnot double loaded anchor with #2 suture was used. The drill hole was based on the underlying anatomy and the isometric point on the capitellum. The anchor was deployed. Mattress Tim-Jay suture pattern was used for secure repair of the lateral ulnar collateral ligament, and the radial collateral ligament, back to the epicondyle. Next, a second 2.9 mm JuggerKnot Frankford was placed further proximally in the lateral epicondyle, for repair of the extensor tendons. Again, the Tim-Jay mattress suture pattern was used for secure repair of the tendons. Finally, the capsule anteriorly and posteriorly was plicated and repaired directly [id number] repair using 0 Vicryl [id number]-[id number] sutures. A nice secure repair was obtained, and the elbow was now stable throughout the range of motion with no constriction of the range of motion. Copious irrigation was used a final time. The tourniquet was released. Bovie electrocautery was used for hemostasis. Marcaine 0.25% with epinephrine was injected in the subcutaneous tissues. The incision was now closed with 2-0 Vicryl. Carlene were placed in the skin. Demetrice had held the elbow reduced during the operation well. Dr. Arellano and I performed the ligament and the tendon repairs. Demetrice now assisted with this application. The arm was kept pronated for stability, and a posterior splint was applied with the elbow slightly extended from 90 degrees, and approximately 70 degrees of flexion. An arm sling was placed. The patient tolerated the procedure well. There were no apparent complications. Needle and sponge counts were correct. Jorge Alberto Arredondo MD DR: [email or web address]/mango JOB#: [id number] / [id number]
[2016-11-16] MEDS ORDERED: CEFAZOLIN 2GM PREMIX 50 ML IV SCH (12:00)
[2016-11-16] MEDS ORDERED: HYDR-2762 PO (13:30)
[2016-11-16] MEDS ORDERED: SENNOSIDES/DOCUSATE 8.6/50MG TABLET. PO SCH (13:30)
[2016-11-16] MEDS ORDERED: POLY17PO5 PO (13:30)
[2016-11-16] MEDS ORDERED: DOCU100C5 PO (13:30)
--- NOTE | 2016-11-16 13:44 | RAD ---
Portable left elbow, 3 views, 11/16/2016: History: Postop evaluation Comparison is made to a study from 11/14/2016. The images were obtained through a radiopaque splint partially compromising bony detail. The previously seen elbow dislocation has been reduced. Small fracture fragments are again noted projected along the medial aspect of the elbow joint, of uncertain origin. No other fracture is identified.
--- NOTE | 2016-11-16 15:21 | PDOC ---
PROGRESS NOTES Chief Complaint Chief Complaint Trauma admit, s.p fall left elbow dislocation, closed left wrist fracture, traumatic and displaced distal radius fracture with ulnar fracture Leukocytosis, SIRS, not infectious, obesity, BMI 37 History of Present Illness History of Present Illness left elbow still dislocated, MRI showed extensive damage, surg this AM for elbow repair Dr. Arredondo Ortho following pt feels well, no stool, ambulating, 3 agents given will DC if able to stool, pain control OK with Lortab 7.5 Vitals Vitals Vital Signs Date Time Temp Pulse Resp B/P Pulse Ox O2 Delivery O2 Flow Rate FiO2 11/16/16 13:30 98.3 92 18 134/86 96 Room Air 98.3 11/16/16 09:20 10 Physical Exam General: Alert, Cooperative, moderate distress, Other (diaphoretic) Heart: Regular rate, Normal S1, Normal S2 Abdomen: Normal bowel sounds, Soft Extremities: No edema, Other Skin: No rashes, No significant lesion Labs LABS Laboratory Tests Test 11/15/16 17:22 Glucose (Fingerstick) 132mg/dL (70-99) Assessment and Plan Assessmemt and Plan Problems Medical Problems: (1) Dislocation of left elbow Status: Acute (2) Distal radius fracture, left Status: Acute Problems: Comment Review of Relevant I have reviewed the following items mk (where applicable) has been applied. Labs Laboratory Tests Test 11/15/16 03:35 11/15/16 07:42 11/15/16 11:00 11/15/16 17:22 White Blood Count 13.5x10^3/uL (4.0-11.0) Red Blood Count 4.85x10^6/uL (4.30-5.70) Hemoglobin 13.3g/dL (13.0-17.5) Hematocrit 41.3% (39.0-53.0) Mean Corpuscular Volume 85fL (79-100) Mean Corpuscular Hemoglobin 27pg (25-35) Mean Corpuscular Hemoglobin Concent 32g/dL (31-37) Red Cell Distribution Width 14.3% (11.5-14.5) Platelet Count 301x10^3/uL (140-400) Neutrophils (%) (Auto) 84% (31-73) Lymphocytes (%) (Auto) 10% (24-48) Monocytes (%) (Auto) 6% (0-9) Eosinophils (%) (Auto) 0% (0-3) Basophils (%) (Auto) 0% (0-3) Neutrophils # (Auto) 11.4x10^3uL (1.8-7.7) Lymphocytes # (Auto) 1.4x10^3/uL (1.0-4.8) Monocytes # (Auto) 0.8x10^3/uL (0.0-1.1) Eosinophils # (Auto) 0.0x10^3/uL (0.0-0.7) Basophils # (Auto) 0.0x10^3/uL (0.0-0.2) Sodium Level 138mmol/L (136-145) Potassium Level 4.7mmol/L (3.5-5.1) Chloride Level 102mmol/L (98-107) Carbon Dioxide Level 26mmol/L (21-32) Anion Gap 10 (6-14) Blood Urea Nitrogen 15mg/dL (8-26) Creatinine 1.1mg/dL (0.7-1.3) Estimated GFR (Cockcroft-Gault) 75.7 Glucose Level 174mg/dL (70-99) Calcium Level 8.8mg/dL (8.5-10.1) 25-Hydroxy Vitamin D Total 15.3ng/mL (30.0-100.0) Glucose (Fingerstick) 126mg/dL (70-99) 119mg/dL (70-99) 132mg/dL (70-99) Laboratory Tests Test 11/15/16 17:22 Glucose (Fingerstick) 132mg/dL (70-99) Medications Current Medications Sodium Chloride (Iv Sodium Chloride 0.9% 1000ml Bag) 1,000 ml @ 1,000 mls/hr Q1H IV Last administered on 11/14/16 10:06; Start 11/14/16 at 09:56; Stop at 10:55; Status DC Ondansetron HCl (Zofran) 4 mg 1X ONCE IV Last administered on 11/14/16 10:06; Start 11/14/16 at 10:30; Stop 11/14/16 at 10:31; Status DC Hydromorphone HCl (Dilaudid) 1 mg PRN Q15MIN PRN IV/SQ PAIN GREATER THAN 3/10 Last administered on 11/14/16 11:11; Start 11/14/16 at 10:30; Stop 11/14/16 at 12: 34; Status DC Ondansetron HCl (Zofran) 4 mg STK-MED ONCE .ROUTE ; Start 11/14/16 at 10:01; Stop 11/14/16 at 10:02; Status DC Hydromorphone HCl (Dilaudid) 2 mg STK-MED ONCE .ROUTE ; Start 11/14/16 at 10:01; Stop 11/14/16 at 10:02; Status DC Ondansetron HCl 4 mg 4 mg PRN Q8HRS PRN IV NAUSEA/VOMITING; Start 11/14/16 at 10 :45; Stop 11/15/16 at 10:44; Status DC Sodium Chloride (Iv Sodium Chloride 0.9% 1000ml Bag) 1,000 ml @ 100 mls/hr Q10H IV ; Start 11/14/16 at 10:40; Stop 11/14/16 at 12:55; Status DC Acetaminophen (Tylenol) 650 mg PRN Q4HRS PRN PO FEVER; Start 11/14/16 at 10:45; Stop 11/15/16 at 10:44; Status DC Hydromorphone HCl (Dilaudid) 1 mg PRN Q2HR PRN PO PAIN; Start 11/14/16 at 10:45 ; Stop 11/14/16 at 14:08; Status DC Hydromorphone HCl 1 mg 1 mg PRN Q2HR PRN IV PAIN Last administered on 11/14/16 12:30; Start 11/14/16 at 12:30; Stop 11/14/16 at 14:13; Status DC Potassium Chloride/Dextrose/ Sod Cl 1,000 ml @ 125 mls/hr Q8H IV Last administered on 11/16/16 10:45; Start 11/14/16 at 13:00 Cefazolin Sodium/ Dextrose (Ancef 2gm Premix) 50 ml @ 100 mls/hr 1X ONCE IV Last administered on 11/14/16 17:14; Start 11/14/16 at 14:00; Stop 11/14/16 at 14: 29; Status DC Morphine Sulfate 10 mg PRN Q2HR PRN IV PAIN Last administered on 11/15/16 17:10 ; Start 11/14/16 at 13:45 Insulin Aspart (Novolog) 0-7 UNITS TIDWMEALS SQ ; Start 11/14/16 at 17:00; Stop 11/15/16 at 12:55; Status DC Dextrose (Dextrose 50%-Water Syringe) 12.5 gm PRN Q15MIN PRN IV SEE COMMENTS; Start 11/14/16 at 13:45; Stop 11/15/16 at 12:55; Status DC Ketorolac Tromethamine (Toradol) 30 mg 1X ONCE IV Last administered on 13:48; Start 11/14/16 at 14:00; Stop 11/14/16 at 14:01; Status DC Hydromorphone HCl (Dilaudid) 1.6 mg PRN Q2HR PRN PO PAIN; Start 11/14/16 at 14: 15; Stop 11/14/16 at 14:15; Status DC Hydromorphone HCl (Dilaudid) 2 mg PRN Q2HR PRN PO PAIN; Start 11/14/16 at 14:15 Hydromorphone HCl (Dilaudid) 1.6 mg PRN Q2HR PRN IV PAIN Last administered on 15:11; Start 11/14/16 at 14:15 Diphenhydramine HCl (Benadryl) 25 mg 1X ONCE IVP Last administered on 15:15; Start 11/14/16 at 14:30; Stop 11/14/16 at 14:31; Status DC Famotidine (Pepcid) 20 mg QHS PO ; Start 11/14/16 at 21:00 Docusate Sodium (Colace) 100 mg DAILY PO Last administered on 11/16/16 11:45; Start 11/14/16 at 21:00 Polyethylene Glycol 17 gm 17 gm PRN DAILY PRN PO CONSTIPATION; Start 11/14/16 at 15:00; Stop 11/15/16 at 09:00; Status DC Lactated Ringer's (Iv Lactated Ringers) 1,000 ml @ 100 mls/hr Q10H IV Last administered on 11/14/16 16:38; Start 11/14/16 at 16:45; Stop 11/14/16 at 20:27; Status DC Bupivacaine HCl/ Epinephrine Bitart (Sensorcaine-Epi 0.25%-1:540999 Mpf) 30 ml STK-MED ONCE INJ Last administered on 11/14/16 17:23; Start 11/14/16 at 17:23; Stop 11/14/16 at 18:34; Status DC Oxycodone HCl (Roxicodone) 5 mg PRN Q3HRS PRN PO PAIN Last administered on 16:51; Start 11/14/16 at 19:30 Morphine Sulfate 2 mg PRN Q1HR PRN IV PAIN; Start 11/14/16 at 19:30; Stop at 09:53; Status DC Fentanyl Citrate (Fentanyl 2ml Vial) 25 mcg PRN Q1HR PRN IV PAIN; Start at 19:30 Senna/Docusate Sodium (Senna Plus) 1 tab DAILY PO Last administered on 08:40; Start 11/15/16 at 09:00; Stop 11/16/16 at 09:54; Status DC Polyethylene Glycol (miraLAX PACKET) 17 gm PRN DAILY PRN PO CONSTIPATION; Start 11/14/16 at 19:30; Status UNV Ondansetron HCl (Zofran) 4 mg PRN Q4HRS PRN IV NAUSEA/VOMITING; Start 11/14/16 at 19:30; Stop 11/16/16 at 09:51; Status DC Aspirin (Rika Aspirin) 325 mg DAILYWBKFT PO Last administered on 11/16/16 11: 45; Start 11/15/16 at 08:00 Magnesium Hydroxide (Milk Of Magnesia) 2,400 mg 1X PRN PRN PO CONSTIPATION; Start 11/15/16 at 06:00; Stop 11/15/16 at 11:47; Status DC Bisacodyl (Dulcolax Supp) 10 mg 1X PRN PRN [place] CONSTIPATION; Start 11/15/16 at 16 :00; Stop 11/16/16 at 15:59 Acetaminophen/ Hydrocodone Bitart (Lortab 7.5/325) 1 tab PRN Q4HRS PRN PO PAIN Last administered on 11/14/16 23:45; Start 11/14/16 at 19:30; Stop 11/16/16 at 09: 49; Status DC Morphine Sulfate 4 mg PRN Q2HR PRN IV PAIN; Start 11/14/16 at 19:30; Stop at 09:54; Status DC Acetaminophen/ Hydrocodone Bitart (Lortab 7.5/325) 2 tab PRN Q4HRS PRN PO PAIN Last administered on 11/15/16 19:50; Start 11/14/16 at 19:30; Stop 11/16/16 at 09: 49; Status DC Dextrose 12.5 gm 12.5 gm PRN Q15MIN PRN IV SEE COMMENTS; Start 11/14/16 at 19:30 ; Status UNV Cefazolin Sodium/ Dextrose (Ancef 2gm Premix) 50 ml @ 100 mls/hr Q6H IV ; Start 11/14/16 at 19:45; Stop 11/14/16 at 19:45; Status DC Ketorolac Tromethamine 30 mg 30 mg Q6HRS IV Last administered on 11/16/16 11:45 ; Start 11/15/16 at 00:00; Stop 11/20/16 at 00:00 Cefazolin Sodium/ Dextrose (Ancef 2gm Premix) 50 ml @ 100 mls/hr Q6H IV Last administered on 11/16/16 05:40; Start 11/14/16 at 23:00; Stop 11/16/16 at 05:29; Status DC Ascorbic Acid (Vitamin C) 500 mg BID PO Last administered on 11/16/16 11:45; Start 11/14/16 at 21:00 Vitamin D (Vitamin D3) 1,000 unit DAILY PO Last administered on 11/15/16 08:40 ; Start 11/15/16 at 09:00; Stop 11/16/16 at 09:13; Status DC Polyethylene Glycol (miraLAX PACKET) 17 gm DAILY PO Last administered on 11:45; Start 11/15/16 at 09:00 Bupivacaine HCl/ Epinephrine Bitart (Sensorcaine-Epi 0.25%-1:484249 Mpf) 30 ml STK-MED ONCE .ROUTE ; Start 11/14/16 at 16:32; Stop 11/15/16 at 11:25; Status DC Lidocaine HCl 100 mg 100 mg STK-MED ONCE .ROUTE ; Start 11/14/16 at 16:51; Stop 11/15/16 at 11:25; Status DC Propofol (Diprivan) 20 ml @ As Directed STK-MED ONCE IV ; Start 11/14/16 at 16:52 ; Stop 11/15/16 at 11:25; Status DC Dexamethasone Sodium Phosphate (Decadron) 20 mg STK-MED ONCE .ROUTE ; Start 11/14 at 16:52; Stop 11/15/16 at 11:25; Status DC Dexamethasone Sodium Phosphate (Decadron) 20 mg STK-MED ONCE .ROUTE ; Start 11/14 at 16:52; Stop 11/15/16 at 11:25; Status DC Ondansetron HCl (Zofran) 4 mg STK-MED ONCE .ROUTE ; Start 11/14/16 at 16:53; Stop 11/15/16 at 11:25; Status DC Fentanyl Citrate (Fentanyl 5ml Vial) 250 mcg STK-MED ONCE .ROUTE ; Start at 16:54; Stop 11/15/16 at 11:25; Status DC Midazolam HCl (Versed) 2 mg STK-MED ONCE .ROUTE ; Start 11/14/16 at 16:54; Stop 11/15/16 at 11:26; Status DC Ketorolac Tromethamine (Toradol For Or Only) 60 mg STK-MED ONCE .ROUTE ; Start 11/14/16 at 18:50; Stop 11/15/16 at 11:26; Status DC Fentanyl Citrate (Fentanyl 2ml Vial) 100 mcg STK-MED ONCE .ROUTE ; Start at 19:15; Stop 11/15/16 at 11:27; Status DC Desflurane (Suprane) 90 ml STK-MED ONCE IH ; Start 11/14/16 at 19:16; Stop at 11:27; Status DC Magnesium Hydroxide (Milk Of Magnesia) 2,400 mg 1X ONCE PO Last administered on 11/15/16t 13:49; Start 11/15/16 at 12:00; Stop 11/15/16 at 12:01; Status DC Ondansetron HCl (Zofran) 0.4 mg PRN Q6HRS PRN IV NAUSEA/VOMITING; Start at 07:00; Stop 11/16/16 at 23:00 Fentanyl Citrate (Fentanyl 2ml Vial) 25 mcg PRN Q5MIN PRN IV MILD PAIN; Start 11/16/16 at 07:00; Stop 11/16/16 at 23:00 Fentanyl Citrate (Fentanyl 2ml Vial) 50 mcg PRN Q5MIN PRN IV MODERATE PAIN Last administered on 11/16/16 09:34; Start 11/16/16 at 07:00; Stop 11/16/16 at 23: 00 Morphine Sulfate 1 mg 1 mg PRN Q10MIN PRN IV SEVERE PAIN; Start 11/16/16 at 07: 00; Stop 11/16/16 at 23:00 Lactated Ringer's (Iv Lactated Ringers) 1,000 ml @ 30 mls/hr Q24H IV ; Start at 07:00; Stop 11/16/16 at 18:59 Lidocaine HCl 2 ml PRN 1X PRN ID PRIOR TO IV START; Start 11/16/16 at 07:00; Stop 11/16/16 at 23:00 Hydromorphone HCl (Dilaudid) 0.5 mg PRN Q10MIN PRN IV SEV PAIN, Second choice; Start 11/16/16 at 07:00; Stop 11/16/16 at 23:00 Prochlorperazine Edisylate (Compazine) 5 mg PACU PRN PRN IV NAUSEA, MRX1; Start 11/16/16 at 07:00; Stop 11/16/16 at 23:00 Ondansetron HCl 4 mg 4 mg STK-MED ONCE .ROUTE ; Start 11/16/16 at 06:43; Stop 11/16/16 at 06:44; Status DC Propofol (Diprivan) 20 ml @ As Directed STK-MED ONCE IV ; Start 11/16/16 at 06:43 ; Stop 11/16/16 at 06:44; Status DC Lidocaine HCl (Lidocaine HCl 2% Abboject) 100 mg STK-MED ONCE .ROUTE ; Start 11/16/16 at 06:43; Stop 11/16/16 at 06:44; Status DC Bupivacaine HCl/ Epinephrine Bitart (Marcaine-Epi 0.25%-1:592583) 50 ml STK-MED ONCE .ROUTE Last administered on 11/16/16 08:45; Start 11/16/16 at 07:02; Stop 11/16/16 at 07:03; Status DC Fentanyl Citrate (Fentanyl 5ml Vial) 250 mcg STK-MED ONCE .ROUTE ; Start at 07:18; Stop 11/16/16 at 07:19; Status DC Midazolam HCl (Versed) 2 mg STK-MED ONCE .ROUTE ; Start 11/16/16 at 07:26; Stop 11/16/16 at 07:27; Status DC Dexamethasone Sodium Phosphate (Decadron) 20 mg STK-MED ONCE .ROUTE ; Start 11/16 at 07:27; Stop 11/16/16 at 07:28; Status DC Sevoflurane (Ultane) 60 ml STK-MED ONCE IH ; Start 11/16/16 at 08:26; Stop at 08:27; Status DC Ergocalciferol (Vitamin D2) 50,000 unit WEEKLY PO Last administered on t 11:45; Start 11/16/16 at 09:00 Vitamin D (Vitamin D3) 5,000 unit DAILY PO ; Start 11/16/16 at 10:00; Stop at 13:19; Status DC Oxycodone HCl (Roxicodone) 5 mg PRN Q3HRS PRN PO PAIN; Start 11/16/16 at 09:15 Morphine Sulfate 2 mg PRN Q1HR PRN IV PAIN; Start 11/16/16 at 09:15 Fentanyl Citrate (Fentanyl 2ml Vial) 25 mcg PRN Q1HR PRN IV PAIN; Start at 09:15 Senna/Docusate Sodium (Senna Plus) 1 tab DAILY PO ; Start 11/17/16 at 09:00; Stop 11/17/16 at 09:00; Status DC Polyethylene Glycol (miraLAX PACKET) 17 gm PRN DAILY PRN PO CONSTIPATION; Start 11/16/16 at 09:15 Ondansetron HCl (Zofran) 4 mg PRN Q4HRS PRN IV NAUSEA/VOMITING; Start 11/16/16 at 09:15 Magnesium Hydroxide (Milk Of Magnesia) 2,400 mg 1X PRN PRN PO CONSTIPATION; Start 11/17/16 at 06:00; Stop 11/18/16 at 05:59 Bisacodyl (Dulcolax Supp) 10 mg 1X PRN PRN [place] CONSTIPATION; Start 11/17/16 at 16 :00; Stop 11/18/16 at 15:59 Acetaminophen/ Hydrocodone Bitart (Lortab 7.5/325) 1 tab PRN Q4HRS PRN PO PAIN ; Start 11/16/16 at 09:15 Morphine Sulfate 4 mg PRN Q2HR PRN IV PAIN; Start 11/16/16 at 09:15 Acetaminophen/ Hydrocodone Bitart (Lortab 7.5/325) 2 tab PRN Q4HRS PRN PO PAIN Last administered on 11/16/16 11:45; Start 11/16/16 at 09:15 Dextrose 12.5 gm 12.5 gm PRN Q15MIN PRN IV SEE COMMENTS; Start 11/16/16 at 09:15 Cefazolin Sodium/ Dextrose (Ancef 2gm Premix) 50 ml @ 100 mls/hr Q6H IV Last administered on 11/16/16 07:41; Start 11/16/16 at 12:00; Stop 11/17/16 at 00:29 Ergocalciferol (Vitamin D2) 50,000 unit WEEKLY PO ; Start 11/17/16 at 09:00; Status Cancel Senna/Docusate Sodium (Senna Plus) 1 tab DAILY PO ; Start 11/16/16 at 13:30 Active Scripts Active Miralax (Polyethylene Glycol 3350) 17 Gm Powd.pack 17 Gm PO DAILY Hydrocodone-Apap 7.5-325 (Hydrocodone Bit/Acetaminophen) 1 Each Tablet 1 Tab PO PRN Q4HRS PRN Docusate Sodium 100 Mg Capsule 100 Mg PO DAILY Vitals/I & O Vital Sign - Last 24 Hours 11/15/16 11/15/16 11/15/16 11/15/16 16:51 17:10 17:39 17:39 Resp 16 16 16 O2 Delivery Room Air Room Air Room Air Room Air 11/15/16 11/15/16 11/15/16 11/15/16 19:00 19:50 20:00 20:50 Temp 97.6 97.6 Pulse 90 Resp 18 B/P 124/79 Pulse Ox 97 94 94 O2 Delivery Room Air Room Air Room Air Room Air 11/15/16 11/16/16 11/16/16 11/16/16 23:00 03:00 06:49 09:05 Temp 98.3 97.8 98.9 97.5 98.3 97.8 98.9 97.5 Pulse 80 71 76 99 Resp 18 18 19 16 B/P 126/73 120/73 136/84 134/87 Pulse Ox 95 97 99 99 O2 Delivery Room Air Room Air Room Air Simple Mask O2 Flow Rate 10 11/16/16 11/16/16 11/16/16 11/16/16 09:05 09:13 09:20 09:34 Pulse 90 Resp 18 18 18 B/P 138/71 Pulse Ox 100 99 95 O2 Delivery Mask Simple Mask Simple Mask Room Air O2 Flow Rate 10 10.0 10 11/16/16 11/16/16 11/16/16 11/16/16 09:35 09:43 09:50 10:05 Temp 98.4 98.4 Pulse 92 94 100 Resp 18 18 18 B/P 144/67 144/70 140/68 Pulse Ox 94 91 95 O2 Delivery Room Air Room Air Room Air Room Air 11/16/16 11/16/16 11/16/16 11/16/16 10:45 10:45 11:00 11:15 Temp 98.2 98.2 Pulse 98 96 97 Resp 18 B/P 126/79 118/72 131/71 Pulse Ox 93 93 93 O2 Delivery Room Air Room Air Room Air Room Air 11/16/16 11/16/16 11/16/16 11/16/16 11:30 11:45 12:30 13:30 Temp 98.3 98.3 Pulse 92 93 92 Resp 18 4 18 18 B/P 145/84 136/83 134/86 Pulse Ox 94 95 96 O2 Delivery Room Air Room Air Room Air Room Air Intake and Output 11/15/16 11/15/16 11/16/16 15:00 23:00 07:00 Intake Total 50 ml 1050 ml 1475 ml Output Total 500 ml 1175 ml Balance 50 ml 550 ml 300 ml LAVONNE PETIT MD Nov 16, 2016 15:21
[2016-11-17] MEDS ORDERED: MAGNESIUM HYDROXIDE 2,400 MG/30 ML ORAL.SUSP. PO PRN (06:00)
[2016-11-17] MEDS ORDERED: SENNOSIDES/DOCUSATE 8.6/50MG TABLET. PO SCH (09:00)
[2016-11-17] MEDS ORDERED: ERGOCALCIFEROL (VITAMIN D2) 50,000 UNIT CAPSULE. PO SCH (09:00)
[2016-11-17] MEDS ORDERED: BISACODYL 10 MG SUPP.RECT. PR PRN (16:00)
== END 2016-11-16 14:13 | disposition home or self-care (01) | DRG 511 ==
LOC: SURG 09:43 → 4 NORTH 10:34
PROVIDERS: ADMIT Internal Medicine; ATTEND Internal Medicine
PROC: 0RSM0ZZ Reposition Left Elbow Joint, Open Approach (ICD-10-PCS; 2016-11-14)
PROC: 0PSJ04Z Reposition Left Radius with Internal Fixation Device, Open Approach (ICD-10-PCS; principal; 2016-11-14 17:00)
PROC: 0PBJ0ZZ Excision of Left Radius, Open Approach (ICD-10-PCS; 2016-11-14 17:00)
DX: S52.539A Colles' fracture of unspecified radius, initial encounter for closed fracture (principal); R65.10 Systemic inflammatory response syndrome (SIRS) of non-infectious origin without acute organ dysfunction; I12.9 Hypertensive chronic kidney disease with stage 1 through stage 4 chronic kidney disease, or unspecified chronic kidney disease; K21.9 Gastro-esophageal reflux disease without esophagitis; N18.2 Chronic kidney disease, stage 2 (mild); E66.9 Obesity, unspecified; J45.909 Unspecified asthma, uncomplicated; S53.105A Unspecified dislocation of left ulnohumeral joint, initial encounter; S52.602B Unspecified fracture of lower end of left ulna, initial encounter for open fracture type I or II; Y99.0 Civilian activity done for income or pay; Z82.49 Family history of ischemic heart disease and other diseases of the circulatory system; Z87.891 Personal history of nicotine dependence; Y93.89 Activity, other specified; Y92.89 Other specified places as the place of occurrence of the external cause; Z68.37 Body mass index [BMI] 37.0-37.9, adult
CPT/HCPCS: 29105; 36415; 73070; 73110; 73221; 80048; 82306; 82947; 85027; 96361; 96374; 96375; 96376; J0690; J1100; J1170; J1200; J1815; J1885; J2250; J2270; J2405; J2704; J3010; J7030; J7120; 99285-25